=== PATIENT | male | born 1965 | race Caucasian/White ===

== ENCOUNTER → 2019-01-16 09:26 | Outpatient (CLI) | payer OTHER, SELFPAY ==
[2019-01-16 10:33] LABS: BUN Creatinine Ratio 18.9 (6-22); Blood Urea Nitrogen 17 mg/dL (9-20); Calcium 8.6 mg/dL (8.4-10.2); Carbon Dioxide 28 mmol/L (22-32); Chloride 103 mmol/L (98-107); Estimated Glomerular Filt Rate > 60.0 mL/min (>60); Glucose 94 mg/dL (70-100); HEMOLYSIS < 15 (0-50); Sodium 141 mmol/L (137-145); Uric Acid 9.3 mg/dL (3.5-8.5)
[2019-01-16 11:05] LABS: Vitamin D 25 Hydroxy (D3) 17.3 ng/mL (30.0-100.0)
== END ==
PROVIDERS: PCP Student in an Organized Health Care Education/Training Program; Visit Provider Student in an Organized Health Care Education/Training Program
DX: M10.9 Gout, unspecified (principal); E55.9 Vitamin D deficiency, unspecified
CPT/HCPCS: 36415; 80048; 82306; 84550

== ENCOUNTER 2019-05-26 12:22 | Day surgery (SDC) | payer OTHER, SELFPAY ==
--- NOTE | 2019-05-26 | PATH_ITS ---
[facility] Accession Number: [id number] . 01 Material submitted: . rectum - RECTAL POLYP . 02 Diagnosis: Rectum, Polyp: Tubular adenoma. MRV/05/28/2019 . 02 Electronically signed: . Raghu Richardson MD, PhD, Pathologist NPI- [id number] . 01 Gross description: . RECTAL POLYP: Received in formalin is 1 fragment(s) of mckeon, soft tissue measuring 0.6 x 0.4 x 0.2 cm submitted entirely in 1 cassette(s) /CKI /CKI . 02 Pathologist provided ICD-10: D12.8 . 02 CPT . 415761 Performed at: 01 [facility] [address] [facility] [place][note 2], [place], [place] [id number] MD Navjot Abernathy MD Phone: [phone] Performed at: 02 [facility] [place] [address] [place], [place] [id number] MD Zoe Melgoza MD Phone: [phone]
[2019-05-26 13:16] VITALS: BP 176/89; PULSE 55; RESP 16; TEMP 37.2; O2SAT 99
[2019-05-26 13:24] VITALS: BMI 48.7
[2019-05-26] MEDS: SODIUM CHLORIDE 0.9% 1,000 ML 200 ML IV (13:38)
--- NOTE | 2019-05-26 14:45 | PM.HP.1 ---
History of Present Illness Chief complaint: [id number] Patient History Medical History Gout (Chronic) Sleep apnea (Chronic) Social History Smoking Status: Former smoker Family & Social History Tobacco & Substance use: Smoking Status Former smoker Meds Home Medications Medication Instructions Recorded Confirmed Type ibuprofen 600 mg PO #0 01/16/13 12/22/18 History colchicine 0.6 mg capsule 0.6 mg PO TID PRN #60 cap 10/08/18 12/22/18 Rx probenecid 500 mg tablet 500 mg PO BID #60 tab 01/16/19 Rx Allergies Allergy/AdvReac Type Severity Reaction Status Date / Time No Known Allergies Allergy Uncoded 12/22/18 15:08 Review of Systems Review of Systems All systems reviewed & are unremarkable except as noted in HPI and below Exam Vital Signs (past 8 hours): - 05/26/19 13:16 Temperature 99 F Pulse Rate 55 L Respiratory Rate 16 Blood Pressure 176/89 H Pulse Oximetry 99 Oxygen Delivery Method Room Air Narrative Exam Narrative: Awake alert and oriented x3, pupils equal round reactive to light, oropharynx clear, heart regular rate and rhythm, lungs clear to auscultation bilaterally, abdomen nontender and nondistended, extremities without edema, no gross neurologic deficits noted Assessment & Plan Assessment & Plan narrative: Colon cancer screening, colonoscopy
[2019-05-26] MEDS: fentaNYL 250 MCG/5 ML INJ IV (15:31)
[2019-05-26] MEDS: MIDAZOLAM 5 MG/5 ML VIAL IV (15:32)
[2019-05-26 15:42] VITALS: BP 133/73; PULSE 60; RESP 16; O2SAT 94
[2019-05-26 15:46] VITALS: BP 147/76; PULSE 60; RESP 14; O2SAT 96
--- NOTE | 2019-05-26 15:50 | PM.OP.ENDO ---
Operative Date/Time/Diagnoses Date of procedure: 05/26/19 Procedure & Clinicians Study performed: Colonoscopy with biopsy Moderate conscious sedation was administered by the endoscopy nurse and supervised by the endoscopist. The following parameters were monitored: Oxygen saturation, heart rate, blood pressure, and response to care. Sedation: 4 mg IV midazolam, 100 mcg IV fentanyl Indications: Colon cancer screening. This is the patient's 1st colonoscopy Procedure Notes Procedure in detail: Prior to the procedure, history and physical was performed, and patient medications and allergies were reviewed. Preprocedure nursing history and assessment was reviewed. Patient identification and proposed procedure were verified by the physician and nurse in the procedure room. The physical status of the patient was reassessed after the procedure. After informed consent was obtained including risks, benefits, and alternatives, the scope was passed under direct vision. Throughout the procedure, the patient's blood pressure, pulse, and oxygen saturations were monitored continuously. The colonoscope was introduced through the anus and advanced to the cecum as identified by the appendiceal orifice and ileocecal valve. The patient tolerated the procedure well. Bowel prep was deemed adequate to detect polyps greater than 5 mm. ISAEL and perianal examinations were unremarkable. Retroflexion in the rectum revealed grade 1 internal hemorrhoids A 3 mm sessile polyp was removed from the rectum with a Jumbo biopsy forceps and retrieved Impression: Internal hemorrhoids 3 mm rectal polyp removed Sedation minutes: 18 Complications: other (EBL minimal. No complications) Plan for aftercare: Follow up pathology results Repeat colonoscopy at a date to be determined based on pathology results Resume home medications Resume previous diet Insert discharge Discharge home with escort
[2019-05-26 15:51] VITALS: BP 146/77; PULSE 54; RESP 14
[2019-05-26 16:02] VITALS: BP 144/78; PULSE 52; RESP 16; TEMP 36.3; O2SAT 97
== END 2019-05-26 16:12 | disposition home or self-care (01) ==
PROVIDERS: PCP Student in an Organized Health Care Education/Training Program; Visit Provider Internal Medicine
PROC: 0DJD8ZZ Inspection of Lower Intestinal Tract, Via Natural or Artificial Opening Endoscopic (ICD-10-PCS; CPT 45378; principal; 2019-05-26 14:00)
DX: Z12.11 Encounter for screening for malignant neoplasm of colon (principal); K64.0 First degree hemorrhoids; G47.30 Sleep apnea, unspecified; Z87.891 Personal history of nicotine dependence; D12.8 Benign neoplasm of rectum
CPT/HCPCS: 45380; 88305; J2250; J3010

== ENCOUNTER 2019-06-08 16:17 | Emergency (ER) | payer OTHER, SELFPAY ==
[2019-06-08 16:19] VITALS: BP 150/95; PULSE 70; RESP 18; TEMP 36.4; O2SAT 97
[2019-06-08 17:30] VITALS: PULSE 77
[2019-06-08] MEDS: IBUPROFEN 400 MG TABLET 800 MG PO (18:05)
--- NOTE | 2019-06-08 18:19 | ED_ITS ---
HPI - Extremity Problem <Thais Montiel PA-C - Last Filed: 06/08/19 21:13> General Chief complaint: Extremity Problem,Nontraumatic Stated complaint: SWELLING OF RIGHT FOOT Time Seen by Provider: 06/08/19 17:06 Source: patient Mode of arrival: ambulatory Limitations: no limitations History of Present Illness HPI Narrative: This 53-year-old male comes in due to right great toe/foot pain. He thinks this feels similar to previous gout exacerbations, states he has had mild pain for about a week but acutely worse today. He has noted some mild redness and swelling. He states it is a little bit different because the bottom of his toe feels slightly numb. He denies any new trauma, bites, walking barefoot, etc. He denies any new fever. He denies any lower extremity swelling or pain, no other new symptoms such as chest pain or dyspnea. Denies other joint pain. He has had many gout attacks in the past and out of colchicine, thinks that prednisone may have worked better than nonsteroidal anti- inflammatories in the past Related Data Home Medications Medication Instructions Recorded Confirmed ibuprofen 600 mg PO #0 01/16/13 12/22/18 Previous Rx's Medication Instructions Recorded colchicine 0.6 mg capsule 0.6 mg PO TID PRN #60 cap 10/08/18 probenecid 500 mg tablet 500 mg PO BID #60 tab 01/16/19 colchicine 0.6 mg PO NOW #3 cap 06/08/19 prednisone 20 mg PO DAILY 5 Days #5 tab 06/08/19 Allergies Allergy/AdvReac Type Severity Reaction Status Date / Time No Known Allergies Allergy Uncoded 12/22/18 15:08 Review of Systems <Thais Montiel PA-C - Last Filed: 06/08/19 21:13> Review of Systems ROS Unobtainable: All systems reviewed & are unremarkable except as noted in HPI and below PFSH <Thais Montiel PA-C - Last Filed: 06/08/19 21:13> Medical History Gout (Chronic) Sleep apnea (Chronic) Surgical History (Updated 06/08/19 @ 18:26 by Thais Montiel PA-C) History of back surgery (Resolved) Social History Smoking Status: Former smoker Social History Smoking Status: Former smoker Exam <Thais Montiel PA-C - Last Filed: 06/08/19 21:13> Narrative Exam Narrative: GENERAL APPEARANCE: Patient sitting comfortably, in no distress. LUNGS: Clear to auscultation bilaterally. HEART: Rate and rhythm regular without murmur, normal S1 and S2, no S3 or S4. DERMATOLOGIC: Mildly erythematous and warm right great toe at the MTP joint, more on the anterior lateral surfaces MUSCULOSKELETAL: Right great toe mild effusion and exquisitely tender at the MTP joint. No other joint tenderness or effusion NEUROVASCULAR: Right foot warm and pink, sensation grossly intact Initial Vital Signs Initial Vital Signs: Vital Signs Temperature 97.5 F L 06/08/19 16:19 Pulse Rate 70 06/08/19 16:19 Respiratory Rate 18 06/08/19 16:19 Blood Pressure 150/95 H 06/08/19 16:19 Pulse Oximetry 97 06/08/19 16:19 <DO Keily Butterfield Last Filed: 06/08/19 22:31> Initial Vital Signs Initial Vital Signs: Vital Signs Temperature 97.5 F L 06/08/19 16:19 Pulse Rate 70 06/08/19 16:19 Respiratory Rate 18 06/08/19 16:19 Blood Pressure 150/95 H 06/08/19 16:19 Pulse Oximetry 97 06/08/19 16:19 Course <Thais Montiel PA-C - Last Filed: 06/08/19 21:13> Orders Ordered: Discontinued Medications Ibuprofen (Advil) 800 mg PO NOW ONE Stop: 06/08/19 18:00 Last Admin: 06/08/19 18:05 Dose: 800 mg Vital Signs - 8 hr 06/08/19 16:19 06/08/19 17:30 06/08/19 18:31 Temperature 97.5 F L Pulse Rate 70 99 H Pulse Rate [Right Dorsalis Pedis] 77 Respiratory Rate 18 20 Blood Pressure 150/95 H Blood Pressure [Right Arm] 167/96 H Pulse Oximetry 97 96 <DO Keily Butterfield Last Filed: 06/08/19 22:31> Orders Ordered: Discontinued Medications Ibuprofen (Advil) 800 mg PO NOW ONE Stop: 06/08/19 18:00 Last Admin: 06/08/19 18:05 Dose: 800 mg Vital Signs - 8 hr 06/08/19 16:19 06/08/19 17:30 06/08/19 18:31 Temperature 97.5 F L Pulse Rate 70 99 H Pulse Rate [Right Dorsalis Pedis] 77 Respiratory Rate 18 20 Blood Pressure 150/95 H Blood Pressure [Right Arm] 167/96 H Pulse Oximetry 97 96 Discharge Plan Departure Patient Disposition: Home Clinical Impression: Gout Qualifiers: Gout site: toe Gout etiology: idiopathic Chronicity: acute Laterality: right Qualified Code(s): M10.071 - Idiopathic gout, right ankle and foot Discharge Date/Time: 06/08/19 18:33 Interventions: ED Discharge Assessment Last Done: 06/08/19 18:32 Instructions: DI for Gout Activity Restrictions/Additional Instructions: I have prescribed colchicine for you as well as prednisone (sent to Headroom). Please take the 1st dose of colchicine when you pick it up, take the 2nd dose an hour later. Typically we treat with 2 doses of this now as higher doses have not been shown to be more effective and can be tough on the kidneys as well as causing diarrhea, however you can take a 3rd dose in the morning if you needed. Also start the prednisone tonight since you think that works better for you then ibuprofen. Take that once daily. You should return as we talked about if you have acutely worsening or new symptoms such as fever, acutely worsening pain or redness. Otherwise, please follow-up with your PCP in 2-3 days to assess her progress and talk about restarting preventative gout medicine when this is better. Prescriptions: New prednisone 20 mg tablet 20 mg PO DAILY 5 Days Qty: 5 RF: 0 colchicine 0.6 mg capsule 0.6 mg PO NOW Qty: 3 RF: 0 No Action colchicine 0.6 mg capsule 0.6 mg PO TID PRN (Reason: gout) Qty: 60 RF: 0 ibuprofen 200 MG capsule 600 mg PO Qty: 0 RF: 0 probenecid 500 mg tablet 500 mg PO BID Qty: 60 RF: 5 Referrals: Alessandro Burnett MD [Primary Care Provider] - <Joni Salguero DO - Last Filed: 06/08/19 22:31> Cosign ED Attending Riya Attestation: I was available for consultation during this patient's emergency department encounter
[2019-06-08 18:31] VITALS: BP 167/96; PULSE 99; RESP 20; O2SAT 96
== END 2019-06-08 18:33 | disposition home or self-care (01) ==
PROVIDERS: Emergency Provider Internal Medicine; PCP Student in an Organized Health Care Education/Training Program
DX: M10.071 Idiopathic gout, right ankle and foot (principal)
CPT/HCPCS: 99282; 99283

== ENCOUNTER 2019-09-12 19:57 | Emergency (ER) | payer OTHER, SELFPAY ==
[2019-09-12 20:05] VITALS: BP 181/87; PULSE 64; RESP 18; TEMP 37.1; O2SAT 100
--- NOTE | 2019-09-12 20:22 | ED.EXTPRO ---
HPI - Extremity Problem <KALEB Vargas - Last Filed: 09/12/19 21:57> General Chief complaint: Extremity Problem,Nontraumatic Stated complaint: right ankle and leg is swelling and painful Time Seen by Provider: 09/12/19 20:15 Source: patient Mode of arrival: Wheelchair Limitations: no limitations History of Present Illness HPI Narrative: 53-year-old male complains of right ankle pain and swelling for the past 3 days. He states the pain is a dull aching 8/10 that is worse with movement better with rest. He reports the pain is radiating up the side of his like. He has a history of gout and has taking colchicine but states it has not provided any relief. Reports a history of back pain and surgery but states that has not been bothering him too much lately. He denies any chest pain, shortness of breath, abdominal pain, nausea, vomiting, diarrhea, fevers, or other concerning symptoms. Related Data Home Medications Medication Instructions Recorded Confirmed ibuprofen 600 mg PO TID PRN #0 01/16/13 09/12/19 colchicine 0.6 mg PO BID 09/12/19 09/12/19 Previous Rx's Medication Instructions Recorded indomethacin 25 mg PO TID PRN #15 cap 09/12/19 Allergies Allergy/AdvReac Type Severity Reaction Status Date / Time No Known Drug Allergies Allergy Verified 09/12/19 20:09 Review of Systems <KALEB Vargas - Last Filed: 09/12/19 21:57> Review of Systems Narrative: REVIEW OF SYSTEMS: GENERAL: Denies fever or chills. HENT: No head trauma, hearing loss or sore throat. EYES: No loss of vision, double vision, eye pain, or irritation. CARDIOVASCULAR: No chest pain or syncope. RESPIRATORY: No shortness of breath or cough. GASTROINTESTINAL: No nausea, vomiting, diarrhea, or constipation. GENITOURINARY: No flank pain or dysuria. MUSCULOSKELETAL: Right ankle swelling and pain, see HPI. INTEGUMENTARY: No rash, lesions, or pruritus. NEURO: No numbness, tingling, memory loss, or confusion. PSYCH: No behavior or mood changes. Patient History <KALEB Vargas - Last Filed: 09/12/19 21:57> Medical/Surgical History Medical History Gout (Chronic) Sleep apnea (Chronic) Surgical History History of back surgery (Resolved) Social History Smoking Status: Former smoker Family/Social History Social History Smoking Status: Former smoker alcohol intake frequency: 0-2 drinks per day Substance Use Type: does not use Exam <KALEB Vargas - Last Filed: 09/12/19 21:57> Initial Vital Signs Initial Vital Signs: Vital Signs Temperature 98.8 F 09/12/19 20:05 Pulse Rate 64 09/12/19 20:05 Respiratory Rate 18 09/12/19 20:05 Blood Pressure 181/87 H 09/12/19 20:05 Pulse Oximetry 100 09/12/19 20:05 PHYSICAL EXAMINATION: GENERAL: Well groomed, alert, and cooperative. Answers questions promptly and appropriately. Vital signs noted. HENT: Normocephalic, atraumatic. EYES: Symmetrical, sclera white, no periorbital swelling. CARDIOVASCULAR: Regular rate. RESPIRATORY: Normal respiratory rate, trachea midline, airway patent. No stridor, nasal flaring or accessory muscle use. MUSCULOSKELETAL: Slight swelling to right ankle. Tenderness with palpation below the right lateral malleolus. No pain reproduced with dorsiflexion. Calf tenderness with dorsiflexion and palpation of calf. Positive straight leg raise for pain in back. Patient walks with a limp due to pain. Equal tone and mass bilaterally. EXTREMITIES: CMS intact. No pedal edema. SKIN: Warm, dry, soft, appropriate color for ethnicity. No lesions, rashes, or wounds. NEURO: Alert and Oriented X 3. No sensory deficits. PSYCH: Appropriate affect and mood. <Kacey Richards DO - Last Filed: 09/13/19 03:46> Initial Vital Signs Initial Vital Signs: Vital Signs Temperature 98.8 F 09/12/19 20:05 Pulse Rate 64 09/12/19 20:05 Respiratory Rate 18 09/12/19 20:05 Blood Pressure 181/87 H 09/12/19 20:05 Pulse Oximetry 100 09/12/19 20:05 Course <KALEB Vargas - Last Filed: 09/12/19 21:57> Course Course Narrative: Patient reported decreased pain after administration of ketorolac. Orders Ordered: ED Orders 09/12/19 20:24 periph venous low extrem rt Stat 09/12/19 20:35 Basic Metabolic Panel Stat C-Reactive Protein Quant Stat Complete Blood Count AUTO DIFF Stat Erythrocyte Sedimentation Rate Stat Partial Thromboplastin Time Stat Prothrombin Time INR Stat Uric Acid Stat Discontinued Medications Ketorolac Tromethamine (Toradol) 30 mg IM NOW ONE Stop: 09/12/19 21:31 Last Admin: 09/12/19 21:38 Dose: 30 mg Documented by: EVA Consultations Consultation #1: Patient staffed with Dr. Richards. Vital Signs Vital signs: Vital Signs - 8 hr 09/12/19 20:05 09/12/19 20:49 09/12/19 22:00 Temperature 98.8 F Pulse Rate 64 64 57 L Respiratory Rate 18 18 Blood Pressure 181/87 H 149/76 H Blood Pressure [Left Arm] 160/104 H Pulse Oximetry 100 97 99 <Kacey Richards DO - Last Filed: 09/13/19 03:46> Orders Ordered: ED Orders 09/12/19 20:24 periph venous low extrem rt Stat 09/12/19 20:35 Basic Metabolic Panel Stat C-Reactive Protein Quant Stat Complete Blood Count AUTO DIFF Stat Erythrocyte Sedimentation Rate Stat Partial Thromboplastin Time Stat Prothrombin Time INR Stat Uric Acid Stat Discontinued Medications Ketorolac Tromethamine (Toradol) 30 mg IM NOW ONE Stop: 09/12/19 21:31 Last Admin: 09/12/19 21:38 Dose: 30 mg Documented by: EVA Vital Signs Vital signs: Vital Signs - 8 hr 09/12/19 20:05 09/12/19 20:49 09/12/19 22:00 Temperature 98.8 F Pulse Rate 64 64 57 L Respiratory Rate 18 18 Blood Pressure 181/87 H 149/76 H Blood Pressure [Left Arm] 160/104 H Pulse Oximetry 100 97 99 MDM - Extremity (Nontraumatic) <KALEB Vargas - Last Filed: 09/12/19 21:57> Lab Data Result diagrams: 09/12/19 20:35 09/12/19 20:35 Labs: Lab Results 09/12/19 09/12/19 09/12/19 Range/Units 20:35 20:35 20:35 WBC (4.5-11.0) X10^3/uL RBC (4.5-5.9) X10^6/uL Hgb (13.5-17.5) g/dL Hct (41-53) % MCV (80-100) fL MCH (26-34) PG MCHC (30-36) % RDW (11.6-14.8) % Plt Count (150-400) X10^3/uL Neut % (Auto) (50-75) % Lymph % (Auto) (25-40) % Davie % (Auto) (3-14) % Eos % (Auto) (2-4) % Baso % (Auto) (0-2) % Neut # (Auto) (8812-9189) /uL Lymph # (Auto) (5821-0314) /uL Davie # (Auto) (0-900) /uL Eos # (Auto) (0-450) /uL Baso # (Auto) (0-100) /uL ESR 1 (0-15) MM/HR PT 10.6 (10.1-12.7) SECONDS INR 0.9 (0.9-1.3) APTT 30 (26.4-36.2) SECONDS Sodium (137-145) mmol/L Potassium (3.4-5.1) mmol/L Chloride (98-107) mmol/L Carbon Dioxide (22-32) mmol/L BUN (9-20) mg/dL Creatinine (0.66-1.25) mg/dL Estimated GFR (>60) mL/min BUN/Creatinine Ratio (6-22) Glucose (70-100) mg/dL Uric Acid 7.9 (3.5-8.5) mg/dL Calcium (8.4-10.2) mg/dL C-Reactive Protein 2.5 H (<1.0) mg/dL 09/12/19 09/12/19 Range/Units 20:35 20:35 WBC 6.9 (4.5-11.0) X10^3/uL RBC 5.30 (4.5-5.9) X10^6/uL Hgb 14.1 (13.5-17.5) g/dL Hct 42.5 (41-53) % MCV 80.1 (80-100) fL MCH 26.7 (26-34) PG MCHC 33.3 (30-36) % RDW 14.7 (11.6-14.8) % Plt Count 291 (150-400) X10^3/uL Neut % (Auto) 50.3 (50-75) % Lymph % (Auto) 34.1 (25-40) % Davie % (Auto) 12.7 (3-14) % Eos % (Auto) 2.1 (2-4) % Baso % (Auto) 0.8 (0-2) % Neut # (Auto) 3500 (1815-8769) /uL Lymph # (Auto) 2300 (3445-2393) /uL Davie # (Auto) 900 (0-900) /uL Eos # (Auto) 100 (0-450) /uL Baso # (Auto) 100 (0-100) /uL ESR (0-15) MM/HR PT (10.1-12.7) SECONDS INR (0.9-1.3) APTT (26.4-36.2) SECONDS Sodium 139 (137-145) mmol/L Potassium 3.7 (3.4-5.1) mmol/L Chloride 102 (98-107) mmol/L Carbon Dioxide 29 (22-32) mmol/L BUN 16 (9-20) mg/dL Creatinine 0.90 (0.66-1.25) mg/dL Estimated GFR > 60.0 (>60) mL/min BUN/Creatinine Ratio 17.8 (6-22) Glucose 110 H (70-100) mg/dL Uric Acid (3.5-8.5) mg/dL Calcium 8.9 (8.4-10.2) mg/dL C-Reactive Protein (<1.0) mg/dL Imaging Data LLE US: Radiologist's impression: [address] [place] [address] Ultrasound Report Signed Patient: Benjamin Mosher JMR#: [id number] : 1965Acct:[id number] Age/Sex: 53 / MDate of Service: 09/12/19 Loc: ED Accession Number: [id number] Procedure: US periph venous low extrem rt Ordering Provider: Chelle Montiel PROCEDURE: US PERIP VENOUS LOW EXTREM RT INDICATIONS: CALF PAIN TECHNIQUE: Real-time imaging, as well as color and pulse Doppler interrogation, were performed of the lower extremity deep veins from the inguinal ligament to the popliteal fossa. COMPARISON: None. FINDINGS: The common femoral, femoral and popliteal veins are normally compressible, and free of intraluminal thrombus. Color and pulse Doppler demonstrate normal phasic intraluminal flow. There is normal augmentation response to distal compression maneuver. IMPRESSION: No DVT found. Dictated by: Domingo Perera M.D. on 09/12/2019 at 21:11 Approved by: Domingo Perera M.D. on 09/12/2019 at 21:12 [facility] Narrative Medical decision making narrative: Suspect patient's symptoms caused by gout (due to elevated CRP, elevated uric acid, history of gout). Less likely DVT due to negative ultrasound. Less likely infection due to lack of erythema and swelling, as well as normal white blood cell count. Less likely fracture or soft tissue injury as patient denies any trauma. Patient was given indomethacin as as previously taking colchicine for this attack (renal function intact). Patient was instructed to follow up with his primary care provider in the next few days for discussion about gout prevention. Strict return precautions were given. <Kacey Richards, DO - Last Filed: 09/13/19 03:46> Lab Data Labs: Lab Results 09/12/19 09/12/19 09/12/19 Range/Units 20:35 20:35 20:35 WBC (4.5-11.0) X10^3/uL RBC (4.5-5.9) X10^6/uL Hgb (13.5-17.5) g/dL Hct (41-53) % MCV (80-100) fL MCH (26-34) PG MCHC (30-36) % RDW (11.6-14.8) % Plt Count (150-400) X10^3/uL Neut % (Auto) (50-75) % Lymph % (Auto) (25-40) % Davie % (Auto) (3-14) % Eos % (Auto) (2-4) % Baso % (Auto) (0-2) % Neut # (Auto) (9824-6061) /uL Lymph # (Auto) (1977-5234) /uL Davie # (Auto) (0-900) /uL Eos # (Auto) (0-450) /uL Baso # (Auto) (0-100) /uL ESR 1 (0-15) MM/HR PT 10.6 (10.1-12.7) SECONDS INR 0.9 (0.9-1.3) APTT 30 (26.4-36.2) SECONDS Sodium (137-145) mmol/L Potassium (3.4-5.1) mmol/L Chloride (98-107) mmol/L Carbon Dioxide (22-32) mmol/L BUN (9-20) mg/dL Creatinine (0.66-1.25) mg/dL Estimated GFR (>60) mL/min BUN/Creatinine Ratio (6-22) Glucose (70-100) mg/dL Uric Acid 7.9 (3.5-8.5) mg/dL Calcium (8.4-10.2) mg/dL C-Reactive Protein 2.5 H (<1.0) mg/dL 09/12/19 09/12/19 Range/Units 20:35 20:35 WBC 6.9 (4.5-11.0) X10^3/uL RBC 5.30 (4.5-5.9) X10^6/uL Hgb 14.1 (13.5-17.5) g/dL Hct 42.5 (41-53) % MCV 80.1 (80-100) fL MCH 26.7 (26-34) PG MCHC 33.3 (30-36) % RDW 14.7 (11.6-14.8) % Plt Count 291 (150-400) X10^3/uL Neut % (Auto) 50.3 (50-75) % Lymph % (Auto) 34.1 (25-40) % Davie % (Auto) 12.7 (3-14) % Eos % (Auto) 2.1 (2-4) % Baso % (Auto) 0.8 (0-2) % Neut # (Auto) 3500 (6870-6963) /uL Lymph # (Auto) 2300 (7685-3415) /uL Davie # (Auto) 900 (0-900) /uL Eos # (Auto) 100 (0-450) /uL Baso # (Auto) 100 (0-100) /uL ESR (0-15) MM/HR PT (10.1-12.7) SECONDS INR (0.9-1.3) APTT (26.4-36.2) SECONDS Sodium 139 (137-145) mmol/L Potassium 3.7 (3.4-5.1) mmol/L Chloride 102 (98-107) mmol/L Carbon Dioxide 29 (22-32) mmol/L BUN 16 (9-20) mg/dL Creatinine 0.90 (0.66-1.25) mg/dL Estimated GFR > 60.0 (>60) mL/min BUN/Creatinine Ratio 17.8 (6-22) Glucose 110 H (70-100) mg/dL Uric Acid (3.5-8.5) mg/dL Calcium 8.9 (8.4-10.2) mg/dL C-Reactive Protein (<1.0) mg/dL Discharge Plan Departure Patient Disposition: Home Clinical Impression: Gout Qualifiers: Gout site: ankle Gout etiology: unspecified cause Chronicity: acute Laterality: right Qualified Code(s): M10.9 - Gout, unspecified Discharge Date/Time: 09/12/19 22:00 Instructions: DI for Gout Activity Restrictions/Additional Instructions: Thank you for entrusting me with your care today. As discussed, it appears that her symptoms may be caused by gout. Your ultrasound was negative for any blood clots under lab work was negative for any infection. I prescribed you indomethacin, please take this next few days to help with pain and swelling. Follow up with your primary care provider about for discussion about gout prevention. Return emergency department if you develop chest pain, shortness of breath, abdominal pain, syncope, high fevers, or other concerning symptoms. Prescriptions: New indomethacin 25 mg capsule 25 mg PO TID PRN (Reason: gout) Qty: 15 RF: 0 No Action ibuprofen 200 MG capsule 600 mg PO TID PRN (Reason: Pain, Moderate) Qty: 0 RF: 0 colchicine 0.6 mg capsule 0.6 mg PO BID RF: 0 Referrals: Alessandro Burnett MD [Primary Care Provider] -
[2019-09-12 20:49] VITALS: BP 160/104; PULSE 64; O2SAT 97
[2019-09-12 20:54] LABS: INR 0.9 (0.9-1.3); Prothrombin Time 10.6 SECONDS (10.1-12.7)
[2019-09-12 20:55] LABS: Add Manual Diff / Slide Review NO; Basophils Absolute Auto 100 /uL (0-100); Basophils Percent Auto 0.8 % (0-2); Eosinophils Absolute Auto 100 /uL (0-450); Eosinophils Percent Auto 2.1 % (2-4); Hematocrit 42.5 % (41-53); Hemoglobin 14.1 g/dL (13.5-17.5); Lymphocytes Absolute Auto 2300 /uL (1100-4500); Lymphocytes Percent Auto 34.1 % (25-40); Mean Corpuscular HGB Conc 33.3 % (30-36); Mean Corpuscular Hemoglobin 26.7 PG (26-34); Mean Corpuscular Volume 80.1 fL (80-100); Monocytes Absolute Auto 900 /uL (0-900); Monocytes Percent Auto 12.7 % (3-14); Neutrophils Absolute Auto 3500 /uL (1500-7000); Neutrophils Percent Auto 50.3 % (50-75); Platelet Count 291 X10^3/uL (150-400); Red Cell Distribution Width 14.7 % (11.6-14.8); White Blood Cell Count 6.9 X10^3/uL (4.5-11.0)
[2019-09-12 20:57] LABS: PTT Partial Thromboplastin Tim 30 SECONDS (26.4-36.2)
[2019-09-12 21:01] LABS: C-Reactive Protein Quant 2.5 mg/dL (<1.0); Uric Acid 7.9 mg/dL (3.5-8.5)
[2019-09-12 21:06] LABS: Erythrocyte Sedimentation Rate 1 MM/HR (0-15)
[2019-09-12 21:22] LABS: BUN Creatinine Ratio 17.8 (6-22); Blood Urea Nitrogen 16 mg/dL (9-20); Calcium 8.9 mg/dL (8.4-10.2); Carbon Dioxide 29 mmol/L (22-32); Chloride 102 mmol/L (98-107); Estimated Glomerular Filt Rate > 60.0 mL/min (>60); Glucose 110 mg/dL (70-100); HEMOLYSIS < 15 (0-50); Potassium 3.7 mmol/L (3.4-5.1); Sodium 139 mmol/L (137-145)
[2019-09-12] MEDS: KETOROLAC 60 MG/2 ML VIAL 30 MG IM (21:38)
[2019-09-12 22:00] VITALS: BP 149/76; PULSE 57; RESP 18; O2SAT 99
== END 2019-09-12 22:00 | disposition home or self-care (01) ==
PROVIDERS: Emergency Provider Nurse Practitioner; PCP Student in an Organized Health Care Education/Training Program
DX: M10.9 Gout, unspecified (principal)
CPT/HCPCS: 80048; 84550; 85025; 85610; 85651; 85730; 86140; 93971; 96372; 99282; 99284; J1885

== ENCOUNTER → 2021-06-25 15:14 | Outpatient (CLI) | payer OTHER, SELFPAY ==
[2021-06-25 16:20] LABS: BUN Creatinine Ratio 17.8 (6-22); Blood Urea Nitrogen 16 mg/dL (9-20); Estimated Glomerular Filt Rate > 60.0 mL/min (>60); Uric Acid 7.9 mg/dL (3.5-8.5)
== END ==
PROVIDERS: PCP Student in an Organized Health Care Education/Training Program; Referring Provider Student in an Organized Health Care Education/Training Program; Visit Provider Student in an Organized Health Care Education/Training Program
DX: I10 Essential (primary) hypertension (principal); M10.9 Gout, unspecified
CPT/HCPCS: 36415; 82565; 84520; 84550

== ENCOUNTER → 2023-06-20 10:45 | Outpatient (CLI) | payer OTHER, SELFPAY ==
[2023-06-20 11:48] LABS: Appearance Urine UA CLEAR; Bilirubin Urine UA NEGATIVE (NEGATIVE); Color Urine UA YELLOW; Glucose Urine UA NEGATIVE (Negative); Ketones Urine UA NEGATIVE (NEGATIVE); Leukocyte Esterase Urine UA NEGATIVE (NEGATIVE); Nitrite Urine UA NEGATIVE (Negative); Occult Blood Urine UA NEGATIVE (Negative); Protein Urine UA NEGATIVE (Negative); Urobilinogen Urine UA 0.2 E.U./dL (0.2); pH Urine UA 5.5 (4.5-8.0)
[2023-06-20 12:06] LABS: Bacteria Urine Occasional (0-1); Culture Indicated Urine Cult Not Indicated; Mucus Urine 2+ (Negative); RBC Urine 0-1/HPF (0-5/HPF); Squamous Epithelial Cell Urine 0-1 /HPF (0-5/HPF); WBC Urine 1-5/HPF (0-5/HPF)
[2023-06-20 12:19] LABS: Add Manual Diff / Slide Review NO; Basophils Absolute Auto 100 /uL (0-100); Basophils Percent Auto 0.9 % (0-2); Eosinophils Absolute Auto 100 /uL (0-450); Eosinophils Percent Auto 2.1 % (2-4); Hematocrit 38.7 % (41-53); Hemoglobin 12.9 g/dL (13.5-17.5); Lymphocytes Absolute Auto 1500 /uL (1100-4500); Lymphocytes Percent Auto 22.6 % (25-40); Mean Corpuscular HGB Conc 33.3 % (30-36); Mean Corpuscular Hemoglobin 26.6 PG (26-34); Mean Corpuscular Volume 79.8 fL (80-100); Monocytes Absolute Auto 700 /uL (0-900); Monocytes Percent Auto 11.3 % (3-14); Neutrophils Absolute Auto 4100 /uL (1500-7000); Neutrophils Percent Auto 63.1 % (50-75); Platelet Count 279 X10^3/uL (150-400); Red Blood Cell Count 4.84 X10^6/uL (4.5-5.9); Red Cell Distribution Width 16.1 % (11.6-14.8); White Blood Cell Count 6.5 X10^3/uL (4.5-11.0)
[2023-06-20 12:29] LABS: Alanine Aminotransferase 22 IU/L (<50); Albumin Globulin Ratio 1.5 (1.0-2.8); Alkaline Phosphatase 87 U/L (38-126); Aspartate Aminotransferase 20 IU/L (17-59); BUN Creatinine Ratio 16.2 (6-22); Bilirubin Total 0.3 mg/dL (0.2-1.3); Blood Urea Nitrogen 16 mg/dL (9-20); Calcium 8.8 mg/dL (8.4-10.2); Carbon Dioxide 31 mmol/L (22-32); Chloride 104 mmol/L (98-107); Cholesterol 148 mg/dL (140-199); Estimated Glomerular Filt Rate > 60 mL/min (>60); Globulin 2.7 g/dL (1.7-4.1); Glucose 92 mg/dL (70-100); HDL Cholesterol 40 mg/dL (40-60); HEMOLYSIS < 15 (0-50); LDL Cholesterol Calculated 89 mg/dL (<100); Potassium 4.7 mmol/L (3.4-5.1); Sodium 142 mmol/L (137-145); Total Protein 6.7 g/dL (6.3-8.2); Triglycerides 97 mg/dL (35-150); Uric Acid 6.7 mg/dL (3.5-8.5)
== END ==
PROVIDERS: PCP Pediatrics; Referring Provider Pediatrics; Visit Provider Pediatrics
DX: E66.01 Morbid (severe) obesity due to excess calories (principal); I10 Essential (primary) hypertension; M10.9 Gout, unspecified
CPT/HCPCS: 36415; 80053; 80061; 81001; 84443; 84550; 85025

== ENCOUNTER 2024-09-25 16:55 | Inpatient (IN) | payer OTHER, SELFPAY ==
[2024-09-25] VITALS (10 sets, daily range): BP systolic 166–211; BP diastolic 87–111; PULSE 87–101; RESP 14–26; TEMP 37.3; O2SAT 94–97; BMI 62.8
--- NOTE | 2024-09-25 17:01 | DI.US.S_ITS ---
PROCEDURE: US PERIPH VENOUS LOW EXTREM LT INDICATIONS: pain and swelling, ? popliteal cyst. Surgery 09/22 TECHNIQUE: Real-time imaging, as well as color and pulse Doppler interrogation, were performed of the lower extremity deep veins from the inguinal ligament to the popliteal fossa, with documentation of the visualized calf veins. COMPARISON: None. FINDINGS: The common femoral, femoral, popliteal, and the visualized calf veins are normally compressible, and free of intraluminal thrombus. Color and pulse Doppler demonstrate normal phasic intraluminal flow. There is normal augmentation response to distal compression maneuver. IMPRESSION: No findings of lower extremity deep venous thrombosis. No popliteal cyst visualized. Dictated by: Franklin Guzmán M.D. on 09/25/2024 at 18:34 Approved by: Franklin Guzmán M.D. on 09/25/2024 at 18:34
--- NOTE | 2024-09-25 17:01 | DI.RAD.S_ITS ---
PROCEDURE: XR KNEE LT 1TO2V INDICATIONS: pain, effusion TECHNIQUE: 2 views of the knee were acquired. COMPARISON: None. FINDINGS: Bones: No fractures or dislocations. No suspicious bony lesions. Soft tissues: Moderate joint effusion. No suspicious soft tissue calcifications. IMPRESSION: No acute bony abnormality. Moderate knee joint effusion. Dictated by: Franklin Guzmán M.D. on 09/25/2024 at 17:54 Approved by: Franklin Guzmán M.D. on 09/25/2024 at 17:54
[2024-09-25] MEDS: HYDROMORPHONE 1 MG INJ IV (17:08)
--- NOTE | 2024-09-25 17:15 | EKG_ITS ---
[place] [id number] [place] [id number] Test Date: 2024-09-25 Pat Name: Benjamin Mosher Department: Room: 226 Gender: Male Internet Marketing Manager: NANCY : 1965 Requested By: Order Number: [id number] Reading MD: Luke Gresham Measurements Intervals [place] Rate: 87 P: 40 [place]: 182 QRS: -14 QRSD: 98 T: 53 QT: 382 QTc: 459 Interpretive Statements Normal sinus rhythm Moderate voltage criteria for LVH, may be normal variant ( R in aVL , [place]on product ) Electronically Signed On 09-28-2024 14:43:09 PDT by Luke Gresham
[2024-09-25] MEDS: hydrOXYzine 50 MG/ML INJ IM (17:18)
[2024-09-25 18:05] LABS: Add Manual Diff / Slide Review NO; Basophils Absolute Auto 0 /uL (0-100); Basophils Percent Auto 0.3 % (0-2); Eosinophils Absolute Auto 0 /uL (0-450); Eosinophils Percent Auto 0.2 % (2-4); Hematocrit 44.3 % (41-53); Hemoglobin 14.3 g/dL (13.5-17.5); Lymphocytes Absolute Auto 1100 /uL (1100-4500); Lymphocytes Percent Auto 8.5 % (25-40); Mean Corpuscular HGB Conc 32.3 % (30-36); Mean Corpuscular Hemoglobin 26.6 PG (26-34); Mean Corpuscular Volume 82.5 fL (80-100); Monocytes Absolute Auto 1200 /uL (0-900); Monocytes Percent Auto 9.4 % (3-14); Neutrophils Absolute Auto 10100 /uL (1500-7000); Neutrophils Percent Auto 81.6 % (50-75); Platelet Count 292 X10^3/uL (150-400); Red Blood Cell Count 5.37 X10^6/uL (4.5-5.9); Red Cell Distribution Width 15.4 % (11.6-14.8); White Blood Cell Count 12.4 X10^3/uL (4.5-11.0)
[2024-09-25 18:23] LABS: Alanine Aminotransferase 141 IU/L (<50); Albumin 4.5 g/dL (3.5-5.0); Albumin Globulin Ratio 1.4 (1.0-2.8); Alkaline Phosphatase 108 U/L (38-126); Aspartate Aminotransferase 54 IU/L (17-59); BUN Creatinine Ratio 15.2 (6-22); Blood Urea Nitrogen 15 mg/dL (9-20); Carbon Dioxide 27 mmol/L (22-32); Chloride 98 mmol/L (98-107); Estimated Glomerular Filt Rate > 60 mL/min (>60); Globulin 3.3 g/dL (1.7-4.1); Glucose 118 mg/dL (70-100); HEMOLYSIS < 15 (0-50); Potassium 3.7 mmol/L (3.4-5.1); Sodium 136 mmol/L (137-145); Total Protein 7.8 g/dL (6.3-8.2); Uric Acid 4.2 mg/dL (3.5-8.5)
--- NOTE | 2024-09-25 18:32 | ED_ITS ---
HPI - Extremity Problem General Chief complaint: Extremity Problem,Nontraumatic Stated complaint: Lt knee pain Time Seen by Provider: 09/25/24 16:56 Source: EMS Mode of arrival: EMS History of Present Illness HPI Narrative: 58-year-old male now postop day 4 gastric bypass surgery done [place] yo, history of gout, no preprocedure or postprocedure left knee pain recalled, now with left knee pain and swelling atraumatic, since yesterday, increasing pain. No fevers or chills. No history of left knee recent interventions. No knee injury recalled before during or after his recent abdominal procedure. Related Data Home Medications Medication Instructions Recorded Confirmed acetaminophen 500 mg tablet 500 mg PO Q4H PRN pain 09/25/24 09/25/24 enoxaparin 40 mg/0.4 mL 40 mg DAILY 09/25/24 09/25/24 subcutaneous syringe methocarbamol 750 mg tablet 750 mg PO 3XD 09/25/24 09/25/24 omeprazole 20 mg capsule,delayed 20 mg PO DAILY 09/25/24 09/25/24 release ondansetron 8 mg disintegrating 8 mg PO Q8H PRN nausea/vomiting 09/25/24 09/25/24 tablet oxycodone 5 mg tablet 5 mg PO Q6H PRN pain 09/25/24 09/25/24 polyethylene glycol 3350 17 gram 17 g PO DAILY 09/25/24 09/25/24 oral powder packet (Miralax) ursodiol 300 mg capsule 300 mg PO BID 09/25/24 09/25/24 Previous Rx's Medication Instructions Recorded colchicine 0.6 mg tablet 0.6 mg PO DAILY 3 months #30 tabs 09/26/23 losartan 100 mg tablet 100 mg PO DAILY blood pressure #90 11/25/23 tabs allopurinol 300 mg tablet 300 mg PO BID #180 tabs 12/23/23 Allergies Allergy/AdvReac Type Severity Reaction Status Date / Time No Known Drug Allergies Allergy Verified 09/25/24 17:07 Review of Systems Review of Systems Narrative: see HPI Patient History Medical History (Updated 09/25/24 @ 18:59 by Moise Blum MD) Nicotine use disorder Benign essential HTN Knee pain Sleep apnea Gout Surgical History History of back surgery Social History household members: family and children Smoking Status: Former smoker Smoking Status: Former smoker alcohol intake frequency: 0-2 drinks per day Substance Use Type: does not use Exam Narrative Exam Narrative: GENERAL: Well-developed patient, in mild distress. HEAD: Atraumatic. Normocephalic. EYES: Pupils equal round and reactive. Extraocular motions intact. No scleral icterus. No injection or drainage. ENT: Nose without bleeding, purulent drainage. Throat without erythema, tonsillar hypertrophy or exudate. Airway patent. NECK: Trachea midline. Non tender CARDIOVASCULAR: Regular rate and rhythm without murmurs, gallops, or rubs. RESPIRATORY: Clear to auscultation. Breath sounds equal bilaterally. No wheezes, rales, or rhonchi. GASTROINTESTINAL: Abdomen soft, non-tender, nondistended. Wearing an abdominal binder EXTREMITIES: Tenderness diffuse left knee, not particularly red or warm, no mediolateral joint line tenderness, some effusion noted. No posterior knee mass or tenderness. No cords or mass or tenderness posteriorly in popliteal or calf or thigh. BACK: Nontender without deformity or crepitance. No flank tenderness. NEURO: AOx3. Motor functions grossly nonfocal SKIN: No rash or erythema of visible areas Initial Vital Signs Initial Vital Signs: Vital Signs Temperature 99.2 F 09/25/24 17:04 Pulse Rate 88 09/25/24 17:04 Respiratory Rate 26 H 09/25/24 17:04 Blood Pressure 211/108 H 09/25/24 17:04 Pulse Oximetry 96 09/25/24 17:04 Oxygen Delivery Method Room Air 09/25/24 17:04 Procedures Joint Aspiration Joint Asp./Inject. 1: Time of procedure: 19:33 Side of body: left Joint Aspirated: knee Ultrasound Guidance: No Skin Prep: Chlorhexidine Local Anesthetic: lidocaine 1% and with epi Amount of anesthesia used (mL): 5 Total fluid obtained (mL): 0 Course Orders Ordered: Acetaminophen (Acetaminophen 325 Mg Tablet) 650 mg PO Q4H PRN PRN Reason: pain Allopurinol (Allopurinol 100 Mg Tablet) 300 mg PO BID [facility] Last Admin: 09/26/24 08:23 Dose: 300 mg Documented By: RCIARDO Colchicine (Colchicine 0.6 Mg Tablet) 0.6 mg PO BID [facility] Last Admin: 09/26/24 08:23 Dose: 0.6 mg Documented By: RICARDO Hydromorphone HCl (Hydromorphone 1 Mg Inj) 1 mg IV Q3H PRN PRN Reason: Pain, Severe (7-10) Last Admin: 09/26/24 14:44 Dose: 1 mg Documented By: Admin: 09/26/24 10:37 Dose: 1 mg Documented By: Admin: 09/26/24 06:10 Dose: 1 mg Documented By: Admin: 09/26/24 02:29 Dose: 1 mg Documented By: Losartan Potassium (Losartan 50 Mg Tablet) 100 mg PO DAILY [facility] Last Admin: 09/26/24 08:22 Dose: 100 mg Documented By: RICARDO Methocarbamol (Methocarbamol 500 Mg Tablet) 750 mg PO TID [facility] Last Admin: 09/26/24 15:31 Dose: 750 mg Documented By: Admin: 09/26/24 08:23 Dose: 750 mg Documented By: RICARDO Morphine Sulfate (Morphine 2 Mg/Ml Inj) 2 mg IV Q4HR PRN PRN Reason: Pain, Moderate (4-6) Last Admin: 09/26/24 13:27 Dose: 2 mg Documented By: Admin: 09/26/24 08:22 Dose: 2 mg Documented By: Admin: 09/26/24 01:20 Dose: 2 mg Documented By: MUNIRA Naloxone HCl (Naloxone 0.4 Mg/Ml Vial) 0.2 mg IV Q2MIN PRN PRN Reason: Opiate Reversal Ondansetron HCl (Ondansetron 4 Mg/2 Ml Inj) 4 mg IV Q8HR PRN PRN Reason: Nausea And Vomiting Ondansetron HCl (Ondansetron 4 Mg Odt) 8 mg PO Q8H PRN PRN Reason: nausea/vomiting Oxycodone HCl (Oxycodone Ir 5 Mg Tablet) 5 mg PO Q6H PRN PRN Reason: pain Last Admin: 09/26/24 04:52 Dose: 5 mg Documented By: Pantoprazole Sodium (Pantoprazole Dr 20 Mg Tablet) 20 mg PO DAILY [facility] Last Admin: 09/26/24 08:23 Dose: 20 mg Documented By: RICARDO Polyethylene Glycol (Polyethylene Glycol 3350 17 Gm Powd.Pack) 17 gm PO DAILY [facility] Last Admin: 09/26/24 08:23 Dose: 17 gm Documented By: RICARDO Sodium Chloride (Sodium Chloride 0.9% Flush) 10 ml IV BID [facility] Last Admin: 09/26/24 08:23 Dose: 10 ml Documented By: RICARDO Ursodiol (Ursodiol 300 Mg Capsule) 300 mg PO BID [facility] Last Admin: 09/26/24 09:54 Dose: Not Given Documented By: RICARDO Discontinued Medications Acetaminophen (Acetaminophen 325 Mg Tablet) 650 mg PO Q6H PRN PRN Reason: Fever/Mild Pain (1-3) Last Admin: 09/26/24 08:22 Dose: 650 mg Documented By: RICARDO Colchicine (Colchicine 0.6 Mg Tablet) 1.2 mg PO NOW ONE Stop: 09/25/24 17:58 Last Admin: 09/25/24 18:33 Dose: 1.2 mg Documented By: SULLY Colchicine (Colchicine 0.6 Mg Tablet) 0.6 mg PO DAILY [facility] Last Admin: 09/26/24 10:01 Dose: Not Given Documented By: RICARDO Hydromorphone HCl (Hydromorphone 1 Mg Inj) 1 mg IV NOW ONE Stop: 09/25/24 17:02 Last Admin: 09/25/24 17:08 Dose: 1 mg Documented By: LILO Hydromorphone HCl (Hydromorphone 1 Mg Inj) 0.5 mg IV NOW ONE Stop: 09/25/24 18:51 Last Admin: 09/25/24 19:22 Dose: 0.5 mg Documented By: IRON Hydromorphone HCl (Hydromorphone 1 Mg Inj) 0.5 mg IV Q3H PRN PRN Reason: Pain, Severe (7-10) Last Admin: 09/25/24 23:45 Dose: 0.5 mg Documented By: Hydroxyzine HCl (Hydroxyzine 50 Mg/Ml Inj) 50 mg IM NOW ONE Stop: 09/25/24 17:02 Last Admin: 09/25/24 17:18 Dose: 50 mg Documented By: KEYLA Ketorolac Tromethamine (Ketorolac 30 Mg/Ml Vial) 15 mg IV NOW ONE Stop: 09/25/24 18:54 Last Admin: 09/25/24 19:23 Dose: 15 mg Documented By: IRON Lidocaine/Epinephrine (Lidocaine 1% W/Epi) 20 ml INJ INTRA-OP ONE Stop: 09/25/24 19:03 Last Admin: 09/25/24 19:30 Dose: 5 ml Documented By: IRON Oxycodone/Acetaminophen (Oxycodone/Acetaminophen 5/325 Tablet) 1 tab PO Q6HR PRN PRN Reason: Pain, Moderate (4-6) Last Admin: 09/26/24 03:58 Dose: 1 tab Documented By: Admin: 09/25/24 21:24 Dose: 1 tab Documented By: YVONNE Vital Signs Vital signs: Vital Signs - 8 hr 09/25/24 17:04 09/25/24 17:04 09/25/24 17:30 Temperature 99.2 F Pulse Rate 88 94 H 90 Respiratory Rate 26 H 22 Blood Pressure 211/108 H Pulse Oximetry 96 95 Oxygen Delivery Method Room Air 09/25/24 17:48 09/25/24 17:48 09/25/24 18:00 Temperature Pulse Rate 92 H 92 H Respiratory Rate 23 25 H Blood Pressure 185/105 H Pulse Oximetry 96 Oxygen Delivery Method 09/25/24 18:00 09/25/24 18:30 09/25/24 18:30 Temperature Pulse Rate 87 Respiratory Rate 22 Blood Pressure 197/111 H 177/99 H Pulse Oximetry 96 Oxygen Delivery Method 09/25/24 19:00 09/25/24 19:00 09/25/24 19:30 Temperature Pulse Rate 91 H Respiratory Rate 14 Blood Pressure 189/104 H 167/87 H Pulse Oximetry 97 Oxygen Delivery Method 09/25/24 19:30 09/25/24 20:00 09/25/24 20:00 Temperature Pulse Rate 97 H 101 H Respiratory Rate 22 20 Blood Pressure 166/89 H Pulse Oximetry 95 94 Oxygen Delivery Method MDM - Extremity (Nontraumatic) Lab Data 09/26/24 05:08 09/26/24 05:08 Labs: Lab Results 09/25/24 Range/Units 17:58 WBC 12.4 H (4.5-11.0) X10^3/uL RBC 5.37 (4.5-5.9) X10^6/uL Hgb 14.3 (13.5-17.5) g/dL Hct 44.3 (41-53) % MCV 82.5 (80-100) fL MCH 26.6 (26-34) PG MCHC 32.3 (30-36) % RDW 15.4 H (11.6-14.8) % Plt Count 292 (150-400) X10^3/uL Neut % (Auto) 81.6 H (50-75) % Lymph % (Auto) 8.5 L (25-40) % [place] % (Auto) 9.4 (3-14) % Eos % (Auto) 0.2 L (2-4) % Baso % (Auto) 0.3 (0-2) % Neut # (Auto) 96470 H (4035-2170) /uL Lymph # (Auto) 1100 (1141-7795) /uL [place] # (Auto) 1200 H (0-900) /uL Eos # (Auto) 0 (0-450) /uL Baso # (Auto) 0 (0-100) /uL ESR 20 H (0-15) MM/HR Sodium 136 L (137-145) mmol/L Potassium 3.7 (3.4-5.1) mmol/L Chloride 98 (98-107) mmol/L Carbon Dioxide 27 (22-32) mmol/L BUN 15 (9-20) mg/dL Creatinine 0.99 (0.66-1.25) mg/dL Estimated GFR > 60 (>60) mL/min BUN/Creatinine Ratio 15.2 (6-22) Glucose 118 H (70-100) mg/dL Uric Acid 4.2 (3.5-8.5) mg/dL Calcium 9.0 (8.4-10.2) mg/dL Total Bilirubin 1.0 (0.2-1.3) mg/dL AST 54 (17-59) IU/L ALT 141 H (<50) IU/L Alkaline Phosphatase 108 (38-126) U/L C-Reactive Protein 20.4 H (<1.0) mg/dL Total Protein 7.8 (6.3-8.2) g/dL Albumin 4.5 (3.5-5.0) g/dL Globulin 3.3 (1.7-4.1) g/dL Albumin/Globulin Ratio 1.4 (1.0-2.8) Imaging Data Extremity x-ray #1: My Impression: [address] [address] XRay Report Signed Patient: Benjamin Mosher MR#: [id number] : 1965 Acct:[id number] Age/Sex: 58 / M Date of Service: 09/25/24 Loc: ED Accession Number: [id number] Procedure: XR knee LT 1to2V Ordering Provider: Winnie Correa MD PROCEDURE: XR KNEE LT 1TO2V INDICATIONS: pain, effusion TECHNIQUE: 2 views of the knee were acquired. COMPARISON: None. FINDINGS: Bones: No fractures or dislocations. No suspicious bony lesions. Soft tissues: Moderate joint effusion. No suspicious soft tissue calcifications. IMPRESSION: No acute bony abnormality. Moderate knee joint effusion. Dictated by: Franklin Guzmán M.D. on 09/25/2024 at 17:54 Approved by: Franklin Guzmán M.D. on 09/25/2024 at 17:54 Radiologist's Impression: [address] [address] XRay Report Signed Patient: Benjamin Mosher MR#: [id number] : 1965 Acct:[id number] Age/Sex: 58 / M Date of Service: 09/25/24 Loc: ED Accession Number: [id number] Procedure: XR knee LT 1to2V Ordering Provider: Winnie Correa MD PROCEDURE: XR KNEE LT 1TO2V INDICATIONS: pain, effusion TECHNIQUE: 2 views of the knee were acquired. COMPARISON: None. FINDINGS: Bones: No fractures or dislocations. No suspicious bony lesions. Soft tissues: Moderate joint effusion. No suspicious soft tissue calcifications. IMPRESSION: No acute bony abnormality. Moderate knee joint effusion. Dictated by: Franklin Guzmán M.D. on 09/25/2024 at 17:54 Approved by: Franklin Guzmán M.D. on 09/25/2024 at 17:54 Left lower extremity venous Doppler vascular ultrasound: Radiologist's Impression: [address] [address] Ultrasound Report Signed Patient: Benjamin Mosher MR#: [id number] : 1965 Acct:[id number] Age/Sex: 58 / M Date of Service: 09/25/24 Loc: ED Accession Number: [id number] Procedure: US periph venous low extrem lt Ordering Provider: Winnie Correa MD PROCEDURE: US PERIPH VENOUS LOW EXTREM LT INDICATIONS: pain and swelling, ? popliteal cyst. Surgery 09/22 TECHNIQUE: Real-time imaging, as well as color and pulse Doppler interrogation, were performed of the lower extremity deep veins from the inguinal ligament to the popliteal fossa, with documentation of the visualized calf veins. COMPARISON: None. FINDINGS: The common femoral, femoral, popliteal, and the visualized calf veins are normally compressible, and free of intraluminal thrombus. Color and pulse Doppler demonstrate normal phasic intraluminal flow. There is normal augmentation response to distal compression maneuver. IMPRESSION: No findings of lower extremity deep venous thrombosis. No popliteal cyst visualized. Dictated by: Franklin Guzmán M.D. on 09/25/2024 at 18:34 Approved by: Franklin Guzmán M.D. on 09/25/2024 at 18:34 ECG Data Attestation EKG: I personally reviewed and interpreted this ECG as follows: Interpretation: Normal sinus rhythm with rate of 87, no obvious ST segment elevation or depressions. [place] 182, QRS 98, QTC 459. MDM Narrative Medical decision making narrative: 58-year-old male with history of gout, postop day 4 gastric bypass surgery done in [place], no injury to the knee before during or after surgery recalled, now with left knee pain and swelling. No fever on triage, elevated blood pressure in context of knee pain, sirs screen negative. Left knee effusion on examination, no medial or lateral joint line tenderness. Limited range of motion due to pain and effusion. Ultrasound study ordered after triage, as well as x-rays. X-ray left knee ordered from triage, negative for acute bony injuries, no mention of tophus changes, effusion present. See radiology report Ultrasound Doppler ultrasound left lower extremity, negative for clot, also no visualized popliteal/Bakers cyst, no hematoma or SQ mass. Some left knee effusion present. See radiology report Patient consented for left knee arthrocentesis, unsuccessful attempt medial approach, no fluid aspirated for studies. Will consult ortho 193, case discussed with Dr. [facility], concern about elevated CRP, recent stress of major gastric surgery could cause gouty flare, patient in considerable pain, large habitus, significant pain, advises admission, treatment with oral colchicine for now. Hold on antibiotics for now. He will consult. He could offer patient intra-articular joint injection and/or aspiration re- attempt tomorrow if not symptomatically improving. Patient/ amenable to this plan. PCP duy Post will contact hospitalist Karin, case discussed with hospitalist Dr. Elmore, accepts patient for admission to observation Discharge Plan Departure Patient Disposition: Admitted as Observation Clinical Impression: Left knee pain, Effusion of left knee, History of gout Admit Date/Time: 09/25/24 20:07 Admit Provider: Delgado Elmore
[2024-09-25 18:33] LABS: Erythrocyte Sedimentation Rate 20 MM/HR (0-15)
[2024-09-25] MEDS: COLCHICINE 0.6 MG TABLET 1.2 MG PO (18:33)
[2024-09-25 18:37] LABS: C-Reactive Protein Quant 20.4 mg/dL (<1.0)
[2024-09-25] MEDS: HYDROMORPHONE 1 MG INJ 0.5 MG IV ×2 (19:22→23:45)
[2024-09-25] MEDS: KETOROLAC 30 MG/ML VIAL 15 MG IV (19:23)
[2024-09-25] MEDS: LIDOCAINE 1% W/EPI 20 ML INJ (19:30)
[2024-09-25] MEDS: OXYCODONE/ACETAMINOPHEN 5/325 TABLET 1 TAB PO (21:24)
[2024-09-26] VITALS (39 sets, daily range): BP systolic 143–190; BP diastolic 77–93; PULSE 83–106; RESP 18; TEMP 37.3; O2SAT 91–99
[2024-09-26 01:00] LABS: MRSA (Nasal) PCR NOT DETECTED (Not Detect)
[2024-09-26] MEDS: MORPHINE 2 MG/ML INJ IV ×4 (01:20→19:45)
[2024-09-26] MEDS: HYDROMORPHONE 1 MG INJ IV ×6 (02:29→21:45)
[2024-09-26] MEDS: OXYCODONE/ACETAMINOPHEN 5/325 TABLET 1 TAB PO (03:58)
[2024-09-26] MEDS: OXYCODONE IR 5 MG TABLET PO ×2 (04:52→15:51)
[2024-09-26 05:29] LABS: Add Manual Diff / Slide Review NO; Basophils Absolute Auto 0 /uL (0-100); Basophils Percent Auto 0.3 % (0-2); Eosinophils Absolute Auto 100 /uL (0-450); Eosinophils Percent Auto 0.7 % (2-4); Hematocrit 40.7 % (41-53); Hemoglobin 13.4 g/dL (13.5-17.5); Lymphocytes Absolute Auto 1600 /uL (1100-4500); Lymphocytes Percent Auto 16.1 % (25-40); Mean Corpuscular Hemoglobin 27.1 PG (26-34); Mean Corpuscular Volume 82.2 fL (80-100); Monocytes Absolute Auto 1500 /uL (0-900); Monocytes Percent Auto 14.9 % (3-14); Neutrophils Absolute Auto 6900 /uL (1500-7000); Platelet Count 276 X10^3/uL (150-400); Red Blood Cell Count 4.95 X10^6/uL (4.5-5.9); Red Cell Distribution Width 14.8 % (11.6-14.8); White Blood Cell Count 10.2 X10^3/uL (4.5-11.0)
[2024-09-26 05:31] LABS: Alanine Aminotransferase 108 IU/L (<50); Albumin 3.7 g/dL (3.5-5.0); Albumin Globulin Ratio 1.4 (1.0-2.8); Alkaline Phosphatase 112 U/L (38-126); Aspartate Aminotransferase 43 IU/L (17-59); Bilirubin Total 1.2 mg/dL (0.2-1.3); Blood Urea Nitrogen 15 mg/dL (9-20); Calcium 8.9 mg/dL (8.4-10.2); Carbon Dioxide 25 mmol/L (22-32); Chloride 98 mmol/L (98-107); Estimated Glomerular Filt Rate > 60 mL/min (>60); Globulin 2.6 g/dL (1.7-4.1); Glucose 115 mg/dL (70-100); HEMOLYSIS 21 (0-50); Potassium 3.8 mmol/L (3.4-5.1); Sodium 132 mmol/L (137-145); Total Protein 6.3 g/dL (6.3-8.2)
--- NOTE | 2024-09-26 06:28 | P.HP_ITS ---
History of Present Illness History of Present Illness Chief complaint: Lt knee pain Narrative: 58-year-old male with past medical history of obstructive sleep apnea, gout, hypertension and recent gastric bypass surgery done at [facility] presents with left knee pain. Of note, the patient is post-op day four from his gastric bypass. Over the last few days, the patients states that he has increasing left knee pain with some swelling. The patient denies any injury or any previous sugery to his left knee. The patient is concerned of a gout flare up. Otherwise the patient denies any fever, chills, nausea, vomiting or diarrhea.? In our ER, the patient with hemodynamically stable. WBC was 12,000 with elevated CRP. X-ray of the left knee shows no bony injury but did show some effusion. Ultrasound of left lower extremity show no DVT. An attempt for left knee arthrocentesis was unsuccessful by our ER physician. Dr Escobar from orthopedic was consulted but recommended no systemic steroid due to recent gastric bypass. He advised that we admit the patient for pain control and oral colchicine. He will consult on the patient tomorrow and consider intra articular joint injection with steroids versus aspiration reattempt if symptoms not improving.? [facility] Medical History (Updated 09/25/24 @ 18:59 by Moise Blum MD) Nicotine use disorder Benign essential HTN Knee pain Sleep apnea Gout Surgical History History of back surgery Social History household members: family and children Smoking Status: Former smoker Meds Home Medications and Allergies Home Medications Medication Instructions Recorded Confirmed Type colchicine 0.6 mg tablet 0.6 mg PO DAILY 3 months #30 tabs 09/26/23 09/25/24 Rx losartan 100 mg tablet 100 mg PO DAILY blood pressure #90 11/25/23 09/25/24 Rx tabs allopurinol 300 mg tablet 300 mg PO BID #180 tabs 12/23/23 09/25/24 Rx acetaminophen 500 mg tablet 500 mg PO Q4H PRN pain 09/25/24 09/25/24 History enoxaparin 40 mg/0.4 mL 40 mg DAILY 09/25/24 09/25/24 History subcutaneous syringe methocarbamol 750 mg tablet 750 mg PO 3XD 09/25/24 09/25/24 History omeprazole 20 mg capsule,delayed 20 mg PO DAILY 09/25/24 09/25/24 History release ondansetron 8 mg disintegrating 8 mg PO Q8H PRN nausea/vomiting 09/25/24 09/25/24 History tablet oxycodone 5 mg tablet 5 mg PO Q6H PRN pain 09/25/24 09/25/24 History polyethylene glycol 3350 17 gram 17 g PO DAILY 09/25/24 09/25/24 History oral powder packet (Miralax) ursodiol 300 mg capsule 300 mg PO BID 09/25/24 09/25/24 History Allergies Allergy/AdvReac Type Severity Reaction Status Date / Time No Known Drug Allergies Allergy Verified 09/25/24 17:07 Review of Systems Review of Systems ROS: Yes All systems reviewed with the patient and are negative except as otherwise documented Exam Vital Signs (past 8 hours): Oxygen Delivery Method Room Air Narrative Exam Narrative: GENERAL: The patient is not in any acute distressed. Awake and alert. HEENT: Nonicteric sclerae, PERRLA, EOMI. Oropharynx clear. Moist mucous membranes. Conjunctivae appear well perfused. HEART: Regular rate and rhythm without murmurs. No lower extremities edema. LUNGS: Clear to auscultation bilaterally. No wheezing, crackles or rhonchi ABDOMEN: Soft, positive bowel sounds, nontender. SKIN: No rash, no excessive bruising, petechiae, or purpura. Left knee slightly swolen and tender NEUROLOGIC: AxO x 3. Cranial nerves II-XII intact without motor/sensory deficit. Objective Labs 09/26/24 05:08 09/26/24 05:08 Labs: Laboratory Results - last 24 hr 09/25/24 09/25/24 09/26/24 17:58 21:30 05:08 WBC 12.4 H 10.2 RBC 5.37 4.95 Hgb 14.3 13.4 L Hct 44.3 40.7 L MCV 82.5 82.2 MCH 26.6 27.1 MCHC 32.3 33.0 RDW 15.4 H 14.8 Plt Count 292 276 Neut % (Auto) 81.6 H 68.0 Lymph % (Auto) 8.5 L 16.1 L [place] % (Auto) 9.4 14.9 H Eos % (Auto) 0.2 L 0.7 L Baso % (Auto) 0.3 0.3 Neut # (Auto) 34586 H 6900 Lymph # (Auto) 1100 1600 [place] # (Auto) 1200 H 1500 H Eos # (Auto) 0 100 Baso # (Auto) 0 0 ESR 20 H Sodium 136 L 132 L Potassium 3.7 3.8 Chloride 98 98 Carbon Dioxide 27 25 BUN 15 15 Creatinine 0.99 0.75 Estimated GFR > 60 > 60 BUN/Creatinine Ratio 15.2 20.0 Glucose 118 H 115 H Uric Acid 4.2 Calcium 9.0 8.9 Total Bilirubin 1.0 1.2 AST 54 43 ALT 141 H 108 H Alkaline Phosphatase 108 112 C-Reactive Protein 20.4 H Total Protein 7.8 6.3 Albumin 4.5 3.7 Globulin 3.3 2.6 Albumin/Globulin Ratio 1.4 1.4 Nasal Screen MRSA (PCR) Not detected Assessment & Plan Assessment & Plan narrative: Left knee pain with effusion. Admit the patient to medical observation. Could be from severe gout flare up.? As stated above we will continue pain control.? No systemic steroid recommended at this time. Will continue colchicine and PRN pain medication including IV Dilaudid. Patient does not have signs of sepsis right now and per orthopedic surgery septic arthritis is less likely.? Hold antibiotic. Orthopedic surgery will consult in the morning regarding possible localized joint steroid injection versus reaspiration. PT, OT . Hypertension, monitor blood pressure and treat accordingly. Gout . Like severe flare up. Continue colchicine but hold systemic steroid due to recent gastric bypass.? DVT prophylaxis Hep sub q? Code status full code? Disposition likely home in 1 to 2 days? Time-Based Coding :: [TOTAL MINUTES] spent with patient and on the chart (including review of chart, obtaining history, exam, reviewing outside data, placing orders, documenting exam and treatment plan, and counseling patient) on [DATE].
--- NOTE | 2024-09-26 06:33 | PC.NURSE ---
pt arrived from ER via stretcher, pt assisted over to bed via slider board, A&Ox4, difficulty moving L knee due to pain, analgesics given with little effect, MD notified and orders adjusted with mild to mod effect, pt still asking for more pain meds, MD notified, no new orders at this time, hypertensive with pain, lungs clear, O2 sats 85-92% on RA when asleep, 2L NC applied, RT aware that pt wears CPAP at home and is declining hospital CPAP at this times, abd round soft with BS, x6 lap sites with dsgs intact from recent gastric bypass surgery, abd binder maintained, voiding via urinal, L knee bandaid intact, initially 1+ non pitting swelling around knee cap, overnight bruising noted around kneecap, border of bruise outlined and monitored, ice pack applied under knee per pt request, call gates within reach, continue to monitor
[2024-09-26] MEDS: LOSARTAN 50 MG TABLET 100 MG PO (08:22)
[2024-09-26] MEDS: ACETAMINOPHEN 325 MG TABLET 650 MG PO (08:22)
[2024-09-26] MEDS: COLCHICINE 0.6 MG TABLET PO ×2 (08:23→20:48)
[2024-09-26] MEDS: allopurinoL 100 MG TABLET 300 MG PO ×2 (08:23→20:48)
[2024-09-26] MEDS: polyethylene glycoL 3350 17 GM POWD.PACK PO (08:23)
[2024-09-26] MEDS: methocarbamoL 500 MG TABLET 750 MG PO ×3 (08:23→20:48)
[2024-09-26] MEDS: SODIUM CHLORIDE 0.9% FLUSH 10 ML IV ×2 (08:23→20:48)
[2024-09-26] MEDS: PANTOPRAZOLE DR 20 MG TABLET PO (08:23)
--- NOTE | 2024-09-26 14:18 | CM.DANOTE ---
Addendum entered by MAHESH Deng 09/26/24 14:21: ADD: According to RN, patient had recent gastric bypass surgery and has been recovering at home without complication. Original Note: Initial DCP Assessment Note Pt is a 58 yo male, resident of [place], arrives with knee pain, found to have a gout flare. PCP: Mariluz Gallagher Payer: Andreina Marlow Reviewed chart, pt discussed in multidisciplinary rounds this morning. Patient lives independently with spouse. Patient is complaining of a lot of pain from this gout flare. Patient is expected to remain here this evening, possible discharge 09/27 depending on severity of symptoms. No barriers identified at this time to patient's safe discharge home w/family to assist; close outpatient f/u recommended. CM team will plan to follow clinical course closely in case any DC needs or concerns arise. MAHESH Shearer Discharge Planning/Care Management CM Discharge Assessment Start: 09/26/24 14:15 Freq: Status: Active Protocol: Document 09/26/24 14:15 AWA (Rec: 09/26/24 14:17 AWA [id number]) Discharge Planning Assessment Assigned State Director MAHESH Belcher DPOA/Assigned Designee Name Teresa Mosher, spouse Contact Information [phone] Advance Directives? No History Provided By Medical Record Prior Living Arrangements House Household Members family,children Type of transporation used prior to Drives own vehicle admit [place] with ADL's Yes Is patient alert and oriented? Yes Barriers to Discharge No Discharge Plan Home Transportation Arrangement Family Referrals Initiated None needed
--- NOTE | 2024-09-26 14:46 | PM.PN.1 ---
Subjective Subjective Interval history: 58 M admitted with uncontrolled pain due to acute gout flare after recent gastric bypass surgery. Still with severe left knee pain today. Exam Vital Signs (past 8 hours): - 09/26/24 07:00 09/26/24 07:00 09/26/24 07:30 Pulse Rate 88 88 Blood Pressure Pulse Oximetry 93 94 Oxygen Delivery Method Room Air 09/26/24 08:00 09/26/24 08:01 09/26/24 08:01 Pulse Rate 86 88 Blood Pressure 172/77 H Pulse Oximetry 96 96 Oxygen Delivery Method 09/26/24 08:10 09/26/24 08:22 09/26/24 12:01 Pulse Rate 87 86 Blood Pressure 172/77 H 190/91 H Pulse Oximetry 97 Oxygen Delivery Method Oxygen Delivery Method Room Air Narrative Exam Narrative: GENERAL: The patient is not in any acute distressed. Awake and alert. HEENT: Nonicteric sclerae, PERRLA, EOMI. Oropharynx clear. Moist mucous membranes. Conjunctivae appear well perfused. HEART: Regular rate and rhythm without murmurs. No lower extremities edema. LUNGS: Clear to auscultation bilaterally. No wheezing, crackles or rhonchi ABDOMEN: Soft, positive bowel sounds, nontender. SKIN: No rash, no excessive bruising, petechiae, or purpura. Left knee slightly with ecchymosis over area of attempted aspiration with localized swelling and pain and mild warmth NEUROLOGIC: AxO x 3. Cranial nerves II-XII intact without motor/sensory deficit. Objective Labs 09/26/24 05:08 09/26/24 05:08 Labs: Laboratory Results - last 24 hr 09/25/24 09/25/24 09/26/24 17:58 21:30 05:08 WBC 12.4 H 10.2 RBC 5.37 4.95 Hgb 14.3 13.4 L Hct 44.3 40.7 L MCV 82.5 82.2 MCH 26.6 27.1 MCHC 32.3 33.0 RDW 15.4 H 14.8 Plt Count 292 276 Neut % (Auto) 81.6 H 68.0 Lymph % (Auto) 8.5 L 16.1 L [place] % (Auto) 9.4 14.9 H Eos % (Auto) 0.2 L 0.7 L Baso % (Auto) 0.3 0.3 Neut # (Auto) 92457 H 6900 Lymph # (Auto) 1100 1600 [place] # (Auto) 1200 H 1500 H Eos # (Auto) 0 100 Baso # (Auto) 0 0 ESR 20 H Sodium 136 L 132 L Potassium 3.7 3.8 Chloride 98 98 Carbon Dioxide 27 25 BUN 15 15 Creatinine 0.99 0.75 Estimated GFR > 60 > 60 BUN/Creatinine Ratio 15.2 20.0 Glucose 118 H 115 H Uric Acid 4.2 Calcium 9.0 8.9 Total Bilirubin 1.0 1.2 AST 54 43 ALT 141 H 108 H Alkaline Phosphatase 108 112 C-Reactive Protein 20.4 H Total Protein 7.8 6.3 Albumin 4.5 3.7 Globulin 3.3 2.6 Albumin/Globulin Ratio 1.4 1.4 Nasal Screen MRSA (PCR) Not detected [facility] Medical History (Updated 09/25/24 @ 18:59 by Moise Blum MD) Nicotine use disorder Benign essential HTN Knee pain Sleep apnea Gout Surgical History History of back surgery Social History household members: family and children Smoking Status: Former smoker Assessment & Plan Assessment & Plan narrative: Acute gout flare of left knee - continue colchicine - consider steriods vs orthopedic steroid injection tomorrow - uric acid normal, okay to continue home allopurinol 300 mg BID without change - no NSAIDs with recent gastric bypass - no evidence for septic arthritis, no fever or leukocytosis. Hypertension, monitor blood pressure and treat accordingly. - continue home losartan 100 mg daily Obesity s/p recent gastric bypass surgery The patient is at much higher risk for medical and surgical complications because of their obesity. This increases the difficulty and complexity of medical and surgical interventions and increases the chances of poor outcomes such as morbidity and mortality. DVT prophylaxis - hold in case of possible steroid injection, continue lovenox if no procedures needed. Code status full code?, surrogate is patient's spouse Disposition likely home in 1 to 2 days?depending on pain control and resolution of symptoms. Time-Based Coding :: [TOTAL MINUTES] spent with patient and on the chart (including review of chart, obtaining history, exam, reviewing outside data, placing orders, documenting exam and treatment plan, and counseling patient) on [DATE].
--- NOTE | 2024-09-26 17:39 | PC.NURSE ---
Pt A&Ox4, pain difficult to control with ordered meds. Provider notified. Pt states can only take pills crushed unless, they're the size of a Tick-Tack or smaller, d/t s/ gastric bypass surgery on 09/22. at bedside. Continues to have hypertensive, provider notified. No new orders. Care ongoing.
[2024-09-26] MEDS: ursodioL 300 MG CAPSULE PO (20:48)
[2024-09-26] MEDS: OXYCODONE IR 5 MG TABLET 10 MG PO (23:12)
[2024-09-27] VITALS (30 sets, daily range): BP systolic 130–157; BP diastolic 68–91; PULSE 85–107; RESP 16–19; TEMP 37–37.1; O2SAT 87–100
[2024-09-27] MEDS: HYDROMORPHONE 1 MG INJ 2 MG IV ×5 (00:47→21:34)
[2024-09-27] MEDS: OXYCODONE IR 5 MG TABLET 10 MG PO ×4 (03:55→23:13)
[2024-09-27 06:29] LABS: Add Manual Diff / Slide Review NO; Basophils Absolute Auto 0 /uL (0-100); Basophils Percent Auto 0.4 % (0-2); Eosinophils Absolute Auto 100 /uL (0-450); Eosinophils Percent Auto 1.6 % (2-4); Hematocrit 41.8 % (41-53); Hemoglobin 13.8 g/dL (13.5-17.5); Lymphocytes Absolute Auto 1600 /uL (1100-4500); Lymphocytes Percent Auto 17.6 % (25-40); Mean Corpuscular Hemoglobin 27.1 PG (26-34); Mean Corpuscular Volume 82.3 fL (80-100); Monocytes Absolute Auto 1400 /uL (0-900); Monocytes Percent Auto 16.2 % (3-14); Neutrophils Absolute Auto 5700 /uL (1500-7000); Neutrophils Percent Auto 64.2 % (50-75); Platelet Count 261 X10^3/uL (150-400); Red Blood Cell Count 5.08 X10^6/uL (4.5-5.9); Red Cell Distribution Width 15.1 % (11.6-14.8); White Blood Cell Count 8.9 X10^3/uL (4.5-11.0)
[2024-09-27 06:48] LABS: Alanine Aminotransferase 97 IU/L (<50); Albumin 3.9 g/dL (3.5-5.0); Albumin Globulin Ratio 1.2 (1.0-2.8); Alkaline Phosphatase 129 U/L (38-126); Aspartate Aminotransferase 36 IU/L (17-59); BUN Creatinine Ratio 13.2 (6-22); Bilirubin Total 1.2 mg/dL (0.2-1.3); Blood Urea Nitrogen 14 mg/dL (9-20); Calcium 8.6 mg/dL (8.4-10.2); Carbon Dioxide 29 mmol/L (22-32); Chloride 95 mmol/L (98-107); Estimated Glomerular Filt Rate > 60 mL/min (>60); Globulin 3.2 g/dL (1.7-4.1); Glucose 117 mg/dL (70-100); HEMOLYSIS 16 (0-50); Potassium 4.1 mmol/L (3.4-5.1); Sodium 131 mmol/L (137-145); Total Protein 7.1 g/dL (6.3-8.2)
[2024-09-27] MEDS: allopurinoL 100 MG TABLET 300 MG PO ×2 (09:36→21:32)
[2024-09-27] MEDS: COLCHICINE 0.6 MG TABLET PO ×2 (09:36→21:32)
[2024-09-27] MEDS: ursodioL 300 MG CAPSULE PO ×2 (09:36→21:32)
[2024-09-27] MEDS: LOSARTAN 50 MG TABLET 100 MG PO (09:36)
[2024-09-27] MEDS: PANTOPRAZOLE DR 20 MG TABLET PO (09:36)
[2024-09-27] MEDS: methocarbamoL 500 MG TABLET 750 MG PO ×3 (09:36→21:32)
[2024-09-27] MEDS: polyethylene glycoL 3350 17 GM POWD.PACK PO (09:37)
[2024-09-27] MEDS: SODIUM CHLORIDE 0.9% FLUSH 10 ML IV ×2 (10:25→23:14)
--- NOTE | 2024-09-27 14:56 | DIET.CONS ---
Dietary Consultation Note Admission Date: 09/27/2024 11:25 Assessment: 58 y M admitted for gout flare. RD screened for low MNA score. Had gastric bypass 09/22/24. Is currently on full liquids phase of recovery. Met w/ pt at bedside. Reports tolerating liquids but early satiety r/t to gastric bypass. Has been getting and tolerates Ensure MAX protein. Will continue to provide ONS max protein BID. Ht: 154.94 cm Wt: 151.046 kg BMI: 62.8 UBW: 153.768 kg on 06/14/24 Last BM: 09/22/24 (09/25/24 21:12) MNA: 10 Jose Juan Score: 21 Diet: 09/26/24 Breakfast Full Liquid Diet Diet Modifications: Labs: RBC 5.08 X10^6/uL (4.5-5.9) 09/27/24 06:22 Hgb 13.8 g/dL (13.5-17.5) 09/27/24 06:22 Hct 41.8 % (41-53) 09/27/24 06:22 Creatinine 1.06 mg/dL (0.66-1.25) 09/27/24 06:22 Electronically Signed by: Albina Jules 09/27/24 14:56 Clinical Dietitian [address] [address]
--- NOTE | 2024-09-27 15:01 | PM.PN.1 ---
Subjective Subjective Interval history: 58 M admitted with uncontrolled pain due to acute gout flare after recent gastric bypass surgery. Still with severe left knee pain today. Asked for evaluation for a knee steroid injection with orthopedics, pending consultation Exam Vital Signs (past 8 hours): - 09/27/24 07:30 09/27/24 07:52 09/27/24 07:52 Temperature 98.8 F Pulse Rate 92 H 88 Respiratory Rate 16 Blood Pressure 134/68 Pulse Oximetry 90 L 96 09/27/24 08:00 Temperature Pulse Rate 85 Respiratory Rate Blood Pressure Pulse Oximetry 91 Oxygen Delivery Method Room Air Oxygen Flow Rate 0 Narrative Exam Narrative: GENERAL: The patient is not in any acute distressed. Awake and alert. HEENT: Nonicteric sclerae, PERRLA, EOMI. Oropharynx clear. Moist mucous membranes. Conjunctivae appear well perfused. HEART: Regular rate and rhythm without murmurs. No lower extremities edema. LUNGS: Clear to auscultation bilaterally. No wheezing, crackles or rhonchi ABDOMEN: Soft, positive bowel sounds, nontender. SKIN: No rash, no excessive bruising, petechiae, or purpura. Left knee slightly with ecchymosis over area of attempted aspiration with localized swelling and pain and mild warmth NEUROLOGIC: AxO x 3. Cranial nerves II-XII intact without motor/sensory deficit. Objective Labs 09/27/24 06:22 09/27/24 06:22 Labs: Laboratory Results - last 24 hr 09/27/24 06:22 WBC 8.9 RBC 5.08 Hgb 13.8 Hct 41.8 MCV 82.3 MCH 27.1 MCHC 33.0 RDW 15.1 H Plt Count 261 Neut % (Auto) 64.2 Lymph % (Auto) 17.6 L [place] % (Auto) 16.2 H Eos % (Auto) 1.6 L Baso % (Auto) 0.4 Neut # (Auto) 5700 Lymph # (Auto) 1600 [place] # (Auto) 1400 H Eos # (Auto) 100 Baso # (Auto) 0 Sodium 131 L Potassium 4.1 Chloride 95 L Carbon Dioxide 29 BUN 14 Creatinine 1.06 Estimated GFR > 60 BUN/Creatinine Ratio 13.2 Glucose 117 H Calcium 8.6 Magnesium 2.0 Total Bilirubin 1.2 AST 36 ALT 97 H Alkaline Phosphatase 129 H Total Protein 7.1 Albumin 3.9 Globulin 3.2 Albumin/Globulin Ratio 1.2 [facility] Medical History (Updated 09/25/24 @ 18:59 by Moise Blum MD) Nicotine use disorder Benign essential HTN Knee pain Sleep apnea Gout Surgical History History of back surgery Social History household members: family and children Smoking Status: Former smoker Assessment & Plan Assessment & Plan narrative: Acute gout flare of left knee - continue colchicine - discussed with orthopedics about steroid injection, pending consultation today. - uric acid normal, okay to continue home allopurinol 300 mg BID without change - no NSAIDs with recent gastric bypass - no evidence for septic arthritis, no fever or leukocytosis. Hypertension, monitor blood pressure and treat accordingly. - continue home losartan 100 mg daily Obesity s/p recent gastric bypass surgery The patient is at much higher risk for medical and surgical complications because of their obesity. This increases the difficulty and complexity of medical and surgical interventions and increases the chances of poor outcomes such as morbidity and mortality. DVT prophylaxis - hold in case of possible steroid injection, continue lovenox if no procedures needed. Code status full code?, surrogate is patient's spouse Disposition likely home in 1 to 2 days?depending on pain control and resolution of symptoms. Change to inpatient given continued need for IV pain medications Time-Based Coding :: [TOTAL MINUTES] spent with patient and on the chart (including review of chart, obtaining history, exam, reviewing outside data, placing orders, documenting exam and treatment plan, and counseling patient) on [DATE].
[2024-09-28] VITALS (14 sets, daily range): BP systolic 128–145; BP diastolic 61–88; PULSE 80–100; RESP 16–18; TEMP 36.4–36.7; O2SAT 85–99
[2024-09-28] MEDS: HYDROMORPHONE 1 MG INJ 2 MG IV ×2 (01:19→06:32)
[2024-09-28] MEDS: OXYCODONE IR 5 MG TABLET 10 MG PO ×4 (04:13→21:23)
[2024-09-28 06:17] LABS: Add Manual Diff / Slide Review NO; Basophils Absolute Auto 0 /uL (0-100); Basophils Percent Auto 0.4 % (0-2); Eosinophils Absolute Auto 100 /uL (0-450); Eosinophils Percent Auto 1.1 % (2-4); Hematocrit 40.3 % (41-53); Hemoglobin 13.2 g/dL (13.5-17.5); Lymphocytes Absolute Auto 2000 /uL (1100-4500); Lymphocytes Percent Auto 17.9 % (25-40); Mean Corpuscular HGB Conc 32.8 % (30-36); Mean Corpuscular Hemoglobin 26.8 PG (26-34); Mean Corpuscular Volume 81.8 fL (80-100); Monocytes Absolute Auto 1600 /uL (0-900); Monocytes Percent Auto 14.8 % (3-14); Neutrophils Absolute Auto 7300 /uL (1500-7000); Neutrophils Percent Auto 65.8 % (50-75); Platelet Count 308 X10^3/uL (150-400); Red Blood Cell Count 4.93 X10^6/uL (4.5-5.9); Red Cell Distribution Width 15.1 % (11.6-14.8)
[2024-09-28 06:40] LABS: Alanine Aminotransferase 78 IU/L (<50); Albumin 3.9 g/dL (3.5-5.0); Albumin Globulin Ratio 1.2 (1.0-2.8); Alkaline Phosphatase 157 U/L (38-126); Aspartate Aminotransferase 28 IU/L (17-59); BUN Creatinine Ratio 13.1 (6-22); Bilirubin Total 1.2 mg/dL (0.2-1.3); Blood Urea Nitrogen 16 mg/dL (9-20); Calcium 8.7 mg/dL (8.4-10.2); Carbon Dioxide 21 mmol/L (22-32); Chloride 97 mmol/L (98-107); Estimated Glomerular Filt Rate > 60 mL/min (>60); Globulin 3.2 g/dL (1.7-4.1); Glucose 142 mg/dL (70-100); HEMOLYSIS < 15 (0-50); Magnesium 2.1 mg/dL (1.6-2.3); Potassium 4.2 mmol/L (3.4-5.1); Sodium 129 mmol/L (137-145); Total Protein 7.1 g/dL (6.3-8.2)
[2024-09-28] MEDS: methocarbamoL 500 MG TABLET 750 MG PO ×3 (08:40→21:26)
[2024-09-28] MEDS: ursodioL 300 MG CAPSULE PO ×2 (08:40→21:27)
[2024-09-28] MEDS: LOSARTAN 50 MG TABLET 100 MG PO (08:41)
[2024-09-28] MEDS: allopurinoL 100 MG TABLET 300 MG PO ×2 (08:41→21:26)
[2024-09-28] MEDS: PANTOPRAZOLE DR 20 MG TABLET PO (08:42)
[2024-09-28] MEDS: COLCHICINE 0.6 MG TABLET PO ×2 (08:42→21:26)
[2024-09-28] MEDS: SODIUM CHLORIDE 0.9% FLUSH 10 ML IV ×2 (08:51→21:27)
[2024-09-28] MEDS: ACETAMINOPHEN 325 MG TABLET 650 MG PO (11:23)
--- NOTE | 2024-09-28 11:46 | P.PN_ITS ---
Subjective Subjective Interval history: 58 M admitted with uncontrolled pain due to acute gout flare after recent gastric bypass surgery. Still with severe left knee pain today. Discussed with orthopedics, plan for L knee steroid injection later today. Exam Vital Signs (past 8 hours): - 09/28/24 04:00 09/28/24 08:00 09/28/24 08:41 Temperature 98.1 F Pulse Rate 95 H 82 Respiratory Rate 18 Blood Pressure 145/88 H 145/68 H Pulse Oximetry 98 Oxygen Delivery Method Room Air Oxygen Flow Rate 0 Oxygen Delivery Method Room Air Oxygen Flow Rate 0 Narrative Exam Narrative: GENERAL: The patient is not in any acute distressed. Awake and alert. HEENT: Nonicteric sclerae, PERRLA, EOMI. Oropharynx clear. Moist mucous membranes. Conjunctivae appear well perfused. HEART: Regular rate and rhythm without murmurs. No lower extremities edema. LUNGS: Clear to auscultation bilaterally. No wheezing, crackles or rhonchi ABDOMEN: Soft, positive bowel sounds, nontender. SKIN: No rash, no excessive bruising, petechiae, or purpura. Left knee slightly with ecchymosis over area of attempted aspiration with localized swelling and pain and mild warmth NEUROLOGIC: AxO x 3. Cranial nerves II-XII intact without motor/sensory deficit. Objective Labs 09/28/24 06:10 09/28/24 06:10 Labs: Laboratory Results - last 24 hr 09/28/24 06:10 WBC 11.0 RBC 4.93 Hgb 13.2 L Hct 40.3 L MCV 81.8 MCH 26.8 MCHC 32.8 RDW 15.1 H Plt Count 308 Neut % (Auto) 65.8 Lymph % (Auto) 17.9 L [place] % (Auto) 14.8 H Eos % (Auto) 1.1 L Baso % (Auto) 0.4 Neut # (Auto) 7300 H Lymph # (Auto) 2000 [place] # (Auto) 1600 H Eos # (Auto) 100 Baso # (Auto) 0 Sodium 129 L Potassium 4.2 Chloride 97 L Carbon Dioxide 21 L BUN 16 Creatinine 1.22 Estimated GFR > 60 BUN/Creatinine Ratio 13.1 Glucose 142 H Calcium 8.7 Magnesium 2.1 Total Bilirubin 1.2 AST 28 ALT 78 H Alkaline Phosphatase 157 H Total Protein 7.1 Albumin 3.9 Globulin 3.2 Albumin/Globulin Ratio 1.2 PFSH Medical History (Updated 09/25/24 @ 18:59 by Moise Blum MD) Nicotine use disorder Benign essential HTN Knee pain Sleep apnea Gout Surgical History History of back surgery Social History household members: family and children Smoking Status: Former smoker Assessment & Plan Assessment & Plan narrative: Acute gout flare of left knee - continue colchicine - discussed with orthopedics about steroid injection, plan on this today. - uric acid normal, okay to continue home allopurinol 300 mg BID without change - no NSAIDs with recent gastric bypass - no evidence for septic arthritis, no fever or leukocytosis. Hypertension, monitor blood pressure and treat accordingly. - continue home losartan 100 mg daily Obesity s/p recent gastric bypass surgery The patient is at much higher risk for medical and surgical complications because of their obesity. This increases the difficulty and complexity of medical and surgical interventions and increases the chances of poor outcomes such as morbidity and mortality. DVT prophylaxis - hold in case of possible steroid injection, continue lovenox if no procedures needed. Code status full code?, surrogate is patient's spouse Disposition likely home in 1 to 2 days?depending on pain control and resolution of symptoms. Change to inpatient given continued need for IV pain medications Time-Based Coding :: [TOTAL MINUTES] spent with patient and on the chart (including review of chart, obtaining history, exam, reviewing outside data, placing orders, documenting exam and treatment plan, and counseling patient) on [DATE].
--- NOTE | 2024-09-28 11:47 | CM.DPNOTE ---
DCP Cont Reviewed chart. Patient discussed in multidisciplinary rounds. Ortho has been consulted and will plan for steroid injection today at bedside. Medical plan of care unfolding. Expected date of discharge depends on response to steroid injection and symptom improvement. Plan remains discharge home w/family w/close outpatient follow up. CM team following clinical course closely in case any discharge needs or concerns arise. JW
[2024-09-29] VITALS (13 sets, daily range): BP systolic 128–138; BP diastolic 67–75; PULSE 73–87; RESP 18–19; TEMP 36.2–36.6; O2SAT 93–99
[2024-09-29] MEDS: OXYCODONE IR 5 MG TABLET 10 MG PO ×3 (01:13→21:38)
[2024-09-29 05:25] LABS: Add Manual Diff / Slide Review NO; Basophils Absolute Auto 0 /uL (0-100); Basophils Percent Auto 0.3 % (0-2); Eosinophils Absolute Auto 100 /uL (0-450); Eosinophils Percent Auto 1.6 % (2-4); Hematocrit 38.7 % (41-53); Lymphocytes Absolute Auto 1200 /uL (1100-4500); Lymphocytes Percent Auto 13.1 % (25-40); Mean Corpuscular HGB Conc 33.5 % (30-36); Mean Corpuscular Hemoglobin 27.5 PG (26-34); Mean Corpuscular Volume 82.1 fL (80-100); Monocytes Absolute Auto 1200 /uL (0-900); Monocytes Percent Auto 13.6 % (3-14); Neutrophils Absolute Auto 6500 /uL (1500-7000); Neutrophils Percent Auto 71.4 % (50-75); Platelet Count 281 X10^3/uL (150-400); Red Blood Cell Count 4.71 X10^6/uL (4.5-5.9); Red Cell Distribution Width 14.8 % (11.6-14.8); White Blood Cell Count 9.1 X10^3/uL (4.5-11.0)
[2024-09-29 05:38] LABS: Alanine Aminotransferase 69 IU/L (<50); Albumin 3.3 g/dL (3.5-5.0); Albumin Globulin Ratio 1.2 (1.0-2.8); Alkaline Phosphatase 200 U/L (38-126); Aspartate Aminotransferase 34 IU/L (17-59); Bilirubin Total 0.9 mg/dL (0.2-1.3); Blood Urea Nitrogen 22 mg/dL (9-20); Calcium 8.7 mg/dL (8.4-10.2); Carbon Dioxide 23 mmol/L (22-32); Chloride 101 mmol/L (98-107); Estimated Glomerular Filt Rate > 60 mL/min (>60); Globulin 2.7 g/dL (1.7-4.1); Glucose 114 mg/dL (70-100); HEMOLYSIS 42 (0-50); Magnesium 2.3 mg/dL (1.6-2.3); Potassium 4.9 mmol/L (3.4-5.1); Sodium 131 mmol/L (137-145)
--- NOTE | 2024-09-29 07:58 | PM.PN.1 ---
Subjective Subjective Interval history: Admitted with gout flare. S: He still has significant knee pain, but this is improving since yesterday. He would recent gastric bypass surgery. He denies any dyspepsia. Exam Vital Signs (past 8 hours): - 09/29/24 04:00 Temperature 97.4 F L Pulse Rate 77 Respiratory Rate 18 Blood Pressure 135/67 Pulse Oximetry 96 Oxygen Flow Rate 0 Oxygen Delivery Method Room Air Oxygen Flow Rate 0 Narrative Exam Narrative: NAD, alert and oriented. Fluent speech. Lungs are clear, normal rate and effort. Heart is regular, no murmur gallop or rub. Abdomen is soft, non distended. Extremities are free of edema. Left knee is a little swollen, but not red or warm. There is a small water blister over the injection site from yesterday's injection. Objective Labs 09/29/24 05:10 09/29/24 05:10 Labs: Laboratory Results - last 24 hr 09/29/24 05:10 WBC 9.1 RBC 4.71 Hgb 13.0 L Hct 38.7 L MCV 82.1 MCH 27.5 MCHC 33.5 RDW 14.8 Plt Count 281 Neut % (Auto) 71.4 Lymph % (Auto) 13.1 L [place] % (Auto) 13.6 Eos % (Auto) 1.6 L Baso % (Auto) 0.3 Neut # (Auto) 6500 Lymph # (Auto) 1200 [place] # (Auto) 1200 H Eos # (Auto) 100 Baso # (Auto) 0 Sodium 131 L Potassium 4.9 Chloride 101 Carbon Dioxide 23 BUN 22 H Creatinine 0.88 Estimated GFR > 60 BUN/Creatinine Ratio 25.0 H Glucose 114 H Calcium 8.7 Magnesium 2.3 Total Bilirubin 0.9 AST 34 ALT 69 H Alkaline Phosphatase 200 H Total Protein 6.0 L Albumin 3.3 L Globulin 2.7 Albumin/Globulin Ratio 1.2 PFSH Medical History Nicotine use disorder Benign essential HTN Knee pain Sleep apnea Gout Surgical History History of back surgery Social History household members: family and children Smoking Status: Former smoker Assessment & Plan Assessment & Plan narrative: Acute gout flare of left knee, present on admission and slowly improving. - continue colchicine - discussed with orthopedics about steroid injection, plan on this today. - uric acid normal, okay to continue home allopurinol 300 mg BID without change - no NSAIDs with recent gastric bypass - no evidence for septic arthritis, no fever or leukocytosis. Hypertension. Present on admission and stable. - continue home losartan 100 mg daily - monitor blood pressure and treat accordingly Obesity s/p recent gastric bypass surgery, present on admission and stable. The patient is at much higher risk for medical and surgical complications because of their obesity. This increases the difficulty and complexity of medical and surgical interventions and increases the chances of poor outcomes such as morbidity and mortality. SAMRA: He was not able to weight bear. He was at home with all of his bedrooms on the 2nd floor. He was not medically stable for discharge. Anticipate home on 09/30. DVT prophylaxis - hold in case of possible steroid injection, continue lovenox if no procedures needed. Code status full code?, surrogate is patient's spouse Time-Based Coding :: [TOTAL MINUTES] spent with patient and on the chart (including review of chart, obtaining history, exam, reviewing outside data, placing orders, documenting exam and treatment plan, and counseling patient) on [DATE].
[2024-09-29] MEDS: PANTOPRAZOLE DR 20 MG TABLET PO (08:49)
[2024-09-29] MEDS: ursodioL 300 MG CAPSULE PO ×2 (08:49→21:39)
[2024-09-29] MEDS: methocarbamoL 500 MG TABLET 750 MG PO ×3 (08:49→21:38)
[2024-09-29] MEDS: allopurinoL 100 MG TABLET 300 MG PO ×2 (08:49→21:38)
[2024-09-29] MEDS: COLCHICINE 0.6 MG TABLET PO ×2 (08:49→21:38)
[2024-09-29] MEDS: LOSARTAN 50 MG TABLET 100 MG PO (08:50)
[2024-09-29] MEDS: SODIUM CHLORIDE 0.9% FLUSH 10 ML IV ×2 (08:51→21:40)
[2024-09-29] MEDS: HYDROMORPHONE 1 MG INJ 0.5 MG IV (12:27)
[2024-09-29] MEDS: ACETAMINOPHEN 325 MG TABLET 650 MG PO (12:27)
[2024-09-29] MEDS: ENOXAPARIN 40 MG/0.4 ML SYRINGE SUBCUT (21:38)
[2024-09-30] VITALS (14 sets, daily range): BP systolic 80–139; BP diastolic 47–71; PULSE 66–81; RESP 18–19; TEMP 36.4–36.7; O2SAT 92–99
[2024-09-30] MEDS: methocarbamoL 500 MG TABLET 750 MG PO ×3 (08:30→21:42)
[2024-09-30] MEDS: ursodioL 300 MG CAPSULE PO ×2 (08:31→21:44)
[2024-09-30] MEDS: allopurinoL 100 MG TABLET 300 MG PO ×2 (08:34→21:43)
[2024-09-30] MEDS: PANTOPRAZOLE DR 20 MG TABLET PO (08:34)
[2024-09-30] MEDS: COLCHICINE 0.6 MG TABLET PO ×2 (08:34→21:43)
[2024-09-30] MEDS: ENOXAPARIN 40 MG/0.4 ML SYRINGE SUBCUT ×2 (08:35→21:42)
[2024-09-30] MEDS: LOSARTAN 50 MG TABLET 100 MG PO (08:35)
[2024-09-30] MEDS: SODIUM CHLORIDE 0.9% FLUSH 10 ML IV (08:38)
--- NOTE | 2024-09-30 11:53 | PM.PN.1 ---
Subjective Subjective Interval history: Summary: Admitted with a gout flare. He was about a week and a half status post a gastric bypass. Currently avoiding prednisone a nonsteroidals for that reason. He had an injection of steroids in his left knee in his on colchicine. S: He was improving. His knee is less tender and swollen. He was not able to weight bear yet. His home has all of the bedrooms upstairs. Exam Vital Signs (past 8 hours): - 09/30/24 04:00 09/30/24 07:00 09/30/24 08:35 Temperature 97.6 F Pulse Rate 78 72 Respiratory Rate 18 Blood Pressure 139/65 126/70 Pulse Oximetry 96 Oxygen Delivery Method Room Air Oxygen Flow Rate 0 09/30/24 08:35 Temperature 98.1 F Pulse Rate 72 Respiratory Rate 19 Blood Pressure 126/70 Pulse Oximetry 96 Oxygen Delivery Method Oxygen Flow Rate 0 Oxygen Delivery Method Room Air Oxygen Flow Rate 0 Narrative Exam Narrative: NAD, alert and oriented. Fluent speech. Lungs are clear, normal rate and effort. Heart is regular, no murmur gallop or rub. Abdomen is soft, non distended. Extremities: He was still swollen, less tender not warm. He does have some pedal edema as well. Objective Labs 09/29/24 05:10 09/29/24 05:10 [facility] Medical History Nicotine use disorder Benign essential HTN Knee pain Sleep apnea Gout Surgical History History of back surgery Social History household members: family and children Smoking Status: Former smoker Assessment & Plan Assessment & Plan narrative: 1. Acute gout flare of left knee, present on admission and slowly improving. - continue colchicine - discussed with orthopedics about steroid injection, plan on this today. - uric acid normal, okay to continue home allopurinol 300 mg BID without change - no NSAIDs with recent gastric bypass -2. Hypertension. Present on admission and stable. - continue home losartan 100 mg daily - monitor blood pressure 3. Obesity s/p recent gastric bypass surgery, present on admission and stable. The patient is at much higher risk for medical and surgical complications because of their obesity. This increases the difficulty and complexity of medical and surgical interventions and increases the chances of poor outcomes such as morbidity and mortality. PLAN: -Continue colchicine and monitor progress with intra-articular injection of steroids. -Avoid nonsteroidals and prednisone due to recent gastric bypass. SAMRA: He was not able to weight bear. He was at home with all of his bedrooms on the 2nd floor. He was not medically stable for discharge. Anticipate home on 10/01. DVT prophylaxis -continue lovenox. Time-Based Coding :: [TOTAL MINUTES] spent with patient and on the chart (including review of chart, obtaining history, exam, reviewing outside data, placing orders, documenting exam and treatment plan, and counseling patient) on [DATE].
[2024-09-30] MEDS: OXYCODONE IR 5 MG TABLET 10 MG PO ×3 (12:32→21:44)
--- NOTE | 2024-09-30 14:00 | OT.IP.EVAL ---
Current Diagnoses Gout, unspecified (09/27/24) Past Medical History (Last Reviewed 09/29/24 @ 12:23 by Angel Aden MD) Benign essential HTN Gout Knee pain Nicotine use disorder Sleep apnea Surgical History (Last Reviewed 09/29/24 @ 12:23 by Angel Aden MD) History of back surgery Occupational Therapy Inpatient Evaluation/Re-Eval M1 PT/OT-IP Prior Functional Status Start: 09/30/24 15:16 Freq: NEEDED Status: Active Protocol: Document 09/30/24 15:16 [facility] (Rec: 09/30/24 15:36 [facility] [id number]) Medical Review Prior Functional Status Communication I Mobility and Gait I Activities of Daily Living and IADL's Completely independent and works concrete laborer. Social History Household Members family,children Living Arrangements House Number of Floors (Floors) Two Floors Number of Stairs To Enter/Railing? 2 steps to enter the house. Home Environment High Toilet,Walk in Shower Home Equipment Front Wheel Walker,Crutches, Hand Held Shower Additional Social History Comment Pt has a recliner. M2 OT-IP Current Condition Start: 09/30/24 15:16 Freq: Status: Active Protocol: Document 09/30/24 15:16 [facility] (Rec: 09/30/24 15:36 [facility] [id number]) Occupational Therapy Current Condition Current Condition Evaluation Date 09/30/24 Treatment Diagnosis Left knee effusion, gout flare . Diagnosis Onset Date 09/27/24 Post Operative Precautions Abdominal Surgery Precautions Log Roll,Lifting Restrictions, Gait Belt above Incisional Area Other Precautions Pt had a gastric bypass sx 1-1 /2 week ago and pt states to have binder on when up. Able to talk to hospitalist to put in orders to clarify use of binder. M3 OT- IP Subjective and Pain Start: 09/30/24 15:16 Freq: Status: Active Protocol: Document 09/30/24 15:16 [facility] (Rec: 09/30/24 15:36 [facility] [id number]) OT- Subjective Occupational Therapy Visit Type Type Initial Evaluation Visit Start Time 13:20 Visit Stop Time 14:00 Occupational Therapy Visit Comments Patient Comments Pt agreed to get up. Patient/Caregiver Goals TO go home. OT Pain Assessment Pain When Pain Assessed At Rest Pain Present Pain Present Pain Reported Location left knee Intensity 5 Scale Used Numeric (0 - 10) M4 OT- IP ADL's Start: 09/30/24 15:16 Freq: Status: Active Protocol: Document 09/30/24 15:16 [facility] (Rec: 09/30/24 15:36 [facility] [id number]) OT [id number] Comments OT Self-Feeding Comments Not at meal time. OT ADL-Grooming Comments OT Grooming Comments Not performed. OT ADL-Oral Care Comments Oral Care Comments NOt performed. OT ADL-Dressing Comments OT Dressing Comments Pt will need extensive assist due to pain and decreased mobility in his left leg. OT ADL-Toileting Comments OT Toileting Comments Not performed. Pt will benefit from a BSC. Pt states has a high toilet and use of sink to help stand at home if needed. OT ADL-Bathing Comments OT Bathing Comments Pt will benefit from a shower chair at home to use. M5 OT- IP IADL's Start: 09/30/24 15:16 Freq: Status: Active Protocol: Document 09/30/24 15:16 [facility] (Rec: 09/30/24 15:36 [facility] [id number]) OT-Instrumental Activities of Daily Living Home Safety Awareness Awareness of Need for Assistance at Home Good Awareness Ability to Problem Solve Emergency Able to Problem Solve Situations Medication Management Medication Management No Deficits Identified Money Management Money Management No Deficits Identified Meal Preparation Meal Preparation Caregiver Provides Assist Geophysics Professor Geophysics Professor Caregiver Provides Assist M6 OT- IP Functional Cognition Start: 09/30/24 15:16 Freq: Status: Active Protocol: Document 09/30/24 15:16 [facility] (Rec: 09/30/24 15:36 [facility] [id number]) Cognitive Factors Limiting Selfcare Function Cognitive Ability Level of Alertness Alert Patient Orientation Name,Age,Birthday,Month,Date, Year,Day of Week,Place, Situation Attention Span Ability Capable of Focused Attention, Capable of Sustained Attention Ability to Follow Commands Able to Follow One Step Commands Cognitive Comments Cognitive Assessment Comments Pt able to follow commands for mobility needs. Pt needing cues to follow abdominal precautions. OT- Vision and Hearing OT- Hearing Assessment OT- Hearing Assessment WFL OT- Vision Assessment Visual Acuity Glasses For Reading Visual Attentiveness WFL Occular Pursuits WFL M7 OT- IP Mobility and Balance Start: 09/30/24 15:16 Freq: Status: Active Protocol: Document 09/30/24 15:16 [facility] (Rec: 09/30/24 15:36 [facility] [id number]) OT- Bed Mobility Assessment Rolling Level of Assistance Minimal Assistance,Bedrails Supine to Sit Supine to Sit Assist Maximum Assistance,1 Person Assistance,Bedrails Sit to Supine Sit to Supine Assist Maximum Assistance,1 Person Assistance OT-Transfer Assessment Sit to and From Stand Sit to and from Stand Maximum Assistance,1 Person Assistance Comments Mobility Comments MAXA X 1 and heavy use of grab bar to sit to the edge of the bed. Pt MAX Ax1 to stand to the FWW and just able to take a few side steps to the head of the bed and very unsteady. OT- Balance Assessment Sitting Balance and Reactions Static Sitting Balance Ability Good Dynamic Sitting Balance Ability Fair Standing Balance and Reactions Static Standing Balance Ability Poor Dynamic Standing Balance Ability Poor M8 OT- IP Objective Assessments Start: 09/30/24 15:16 Freq: Status: Active Protocol: Document 09/30/24 15:16 [facility] (Rec: 09/30/24 15:36 [facility] [id number]) OT Gross Range of Motion Upper Extremity Range of Motion Assessment Within Functional Limits OT Strength Upper Extremity Strength Assessment Within Functional Limits OT Sensation Assessment Edema Edema Present Edema Comments LLE M9 OT- IP Assessment and Plan Start: 09/30/24 15:16 Freq: Status: Active Protocol: Document 09/30/24 15:16 [facility] (Rec: 09/30/24 15:36 [facility] [id number]) OT Summary Assessment and Plan Potential Rehabilitation Potential Good Analytic Complexity at Evaluation Moderate Summary OT Impairments Pain,Range of Motion,Strength, Balance,Functional Mobility, Grooming,Dressing,Toileting, Bathing,Toilet Transfers, Shower Transfers,Activity Tolerance Progress Towards Goals Slow Progress due to Pain,Slow Progress due to Medical Issues,Slow Progress due to Activity Tolerance Assessment Summary Pt MOD complexity and main barriers are pain, needing MAX A x1 to stand due to his gout /left knee pain, and now needing extensive assist for all ADL and mobility needs. Hopefully as pt medically improves will be able to go home with 24/7 assist otherwise pt may need short skilled rehab. Goals Self-Feeding Goal Independent Grooming Goal Independent Dressing Goal Minimal Assistance Toileting Goal Minimal Assistance Bathing Goal Minimal Assistance Toilet Transfer Goal Standby Assistance Shower Transfer Goal Minimal Assistance Days to Meet Goals 10 Frequency of Treatment Other frequency 5x/week Treatment Plan OT Treatment Plan ADL Training,Functional Mobility,Patient/Family Education,Discharge Planning Discharge Recommendations OT Discharge Recommendations Home with 24/7 Assist Available,Home vs SNF Home Equipment Needs BSC, shower chair, LB dressing equipment Transportation Needs at Discharge Wheelchair/Cabulance
--- NOTE | 2024-09-30 16:19 | PT.IIE ---
Current Diagnoses Gout, unspecified (09/27/24) Surgical History (Last Reviewed 09/29/24 @ 12:23 by Angel Aden MD) History of back surgery Medical History (Last Reviewed 09/29/24 @ 12:23 by Angel Aden MD) Benign essential HTN Gout Knee pain Nicotine use disorder Sleep apnea Physical Therapy Inpatient Evaluation/Re-Eval M1 PT/OT-IP Prior Functional Status Start: 09/30/24 15:16 Freq: NEEDED Status: Active Protocol: Document 09/30/24 15:57 [facility] (Rec: 09/30/24 16:19 [facility] [id number]) Medical Review Prior Functional Status Medical History Reviewed Yes Communication I Mobility and Gait I Activities of Daily Living and IADL's 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 Social History Household Members family,children Living Arrangements House Number of Floors (Floors) Two Floors Number of Stairs To Enter/Railing? 2 steps to enter the house. Home Environment High Toilet,Walk in Shower Home Equipment Front Wheel Walker,Crutches, Hand Held Shower Additional Social History Comment Pt has a recliner. M2 PT-IP Current Condition Start: 09/30/24 13:31 Freq: NEEDED Status: Active Protocol: Document 09/30/24 15:57 [facility] (Rec: 09/30/24 16:19 [facility] [id number]) Physical Therapy Current Condition Current Condition Evaluation Date 09/30/24 Treatment Diagnosis LLE pain and gout, pt also states he has gout in right foot M3 PT-IP Subjective Start: 09/30/24 13:31 Freq: NEEDED Status: Active Protocol: Document 09/30/24 15:57 [facility] (Rec: 09/30/24 16:19 [facility] [id number]) Subjective Physical Therapy Visit Type Type Initial Evaluation Visit Start Time 15:57 Visit Stop Time 16:12 Number of ASSOCIATE PROFESSOR OF SURGERY Visits 0 Physical Therapy Visit Comments Patient Comments Pt is agreeable to PT. Therapy Pain Assessment Pain When Pain Assessed At Rest Pain Present Pain Present Pain Reported Location left knee Scale Used Numeric (0 - 10) M4 PT-IP Mobility and Gait Start: 09/30/24 13:31 Freq: NEEDED Status: Active Protocol: Document 09/30/24 15:57 [facility] (Rec: 09/30/24 16:19 [facility] [id number]) PT-Bed Mobility Assessment Rolling Type of Rolling Roll to Right,Roll to Left Level of Assist Contact Guard Assistance Supine to Sit Supine to Sit Contact Guard Assistance,1 Person Assistance,Head of Bed Elevated,Bedrails Sit to Supine Sit to Supine Contact Guard Assistance,Head of Bed Elevated,Bedrails Scooting Scooting to Edge of Bed Contact Guard Assistance PT-Transfer Assessment Sit to and From Stand Sit to and from Stand Contact Guard Assistance,1 Person Assistance,Use of Upper Extremities Equipment Transfer Assistive Device Front Wheeled Walker Orthotic/Prosthetic Devices or Brace: No Transfers Transfer Destination Bed Transfer Technique Side stepping up to HOB Transfer Ability Level of Assist Contact Guard Assistance,1 Person Assistance,Use of Upper Extremities Comments Mobility Comments Pt does not give numeric number to pain, dependent to don socks for mobility, cues for log rolling to protect recent abdominal surgery, PT blocks bariatric RW for STS and pt pushes up from it as he cannot stand when pushing up from the bed Gait Assessment Gait Gait Assistance Required: Contact Guard Assist Distance (Feet) 3 Able to Maintain Weight Bearing Status Yes During Gait Assistive Devices Assistive Device Gait Belt,Front Wheeled Walker Orthotic/Prosthetic Devices or Brace: No Gait Deviations General Gait Pattern Antalgic,Decreased Stride Length,Decreased Feet Clearance,Step-to Gait,Wide Based Gait Factors Limiting Gait Function Factors Limiting Gait Function Decreased Activity Tolerance, Limited Range of Motion,Pain, Poor Balance Comments Gait Comments Left side stepping up to HOB PT-Balance Assessment Sitting Balance and Reactions Static Sitting Balance Ability Fair Dynamic Sitting Balance Ability Fair Standing Balance and Reactions Static Standing Balance Ability Fair Dynamic Standing Balance Ability Fair Device Used Bariatric RW M5 PT-IP Objective Assessments Start: 09/30/24 13:31 Freq: NEEDED Status: Active Protocol: Document 09/30/24 15:57 [facility] (Rec: 09/30/24 16:19 [facility] [id number]) Orientation Orientation/Cognition Level of Alertness Alert Orientation Name,Birthday,Place,Situation Language Function Ability No Deficits Noted Safety Awareness Decreased Safety Awareness Memory Description No Deficits Noted Gross Range of Motion Upper Extremity ROM Impairments Defer to OT Lower Extremity ROM Assessment Bilaterally Impaired Impairments Left knee and ankle are red and have edema Strength Lower Extremity Strength Assessment Bilaterally Impaired Comments Strength Comments Pt does not tolerate MMT given pain Coordination Assessment Gross Coordination Gross Coordination Impaired Sensation Assessment Sensation Gross Sensation Right LE Impaired,Left LE Impaired Sensation Description Hyperesthesia Muscle Tone Muscle Tone WNL Yes M6 PT-IP Treatment Start: 09/30/24 13:31 Freq: NEEDED Status: Active Protocol: Document 09/30/24 15:57 [facility] (Rec: 09/30/24 16:19 [facility] [id number]) Physical Therapy Treatment Education Education Provided Precautions Other Treatments Other Treatment Performed Re-ed pt in abdominal precautions, abdominal binder donned M7 PT-IP Assessment and Plan Start: 09/30/24 13:31 Freq: NEEDED Status: Active Protocol: Document 09/30/24 15:57 [facility] (Rec: 09/30/24 16:19 [facility] [id number]) PT Summary Assessment and Plan Potential Rehabilitation Potential Fair Status of Condition at Evaluation Evolving Summary Impairments Pain,ROM,Strength,Balance, Coordination,Bed Mobility, Transfers,Gait,Activity Tolerance Progress Towards Goals Slow Progress due to Pain Assessment Summary Pt is a 58 y/o male presenting with LLE gout and pt c/o gout in right ankle as well. He recently underwent bariatric bypass surgery and has abdominal binder donned in bed . Pt requires encouragement and CGA for log rolling, transfer and side stepping today. He does not rate pain when asked twice. Goals Bed Mobility Goal Independent Transfer Goal Independent,Front Wheeled Walker Gait Goal Independent,Front Wheel Walker Gait Distance 75 Other Goals Pt will ascend and descend 2 steps with LRAD and no more than CGA to allow safe home entrance. Days to Meet Goals 5 Frequency of Treatment Frequency Of Treatment Once a Day Treatment Plan Physical Therapy Treatment Plan Bed Mobility Training,Transfer Training,Gait Training, Therapeutic Exercise,Balance Retraining,Discharge Planning, Hot or Cold Pack Precautions Abdominal Surgery Precautions Log Roll,Lifting Restrictions, Gait Belt above Incisional Area Weight Bearing Status Allowed Weight Bearing Amount (enter % No restrictions or #) (%) Recommendations To Nursing Amount of Assist Needed 1 Person Assist Discharge Recommendations PT Discharge Recommendations Home with Assistance,Home Health Transportation Needs at Discharge Private Vehicle,Wheelchair/ Cabulance
--- NOTE | 2024-09-30 19:24 | PC.NURSE ---
pt worked w/ PT/OT today; he is able to stand at bedside and get on BSC; unable to ambulate; oral pain meds given today; ice pack per pt request
[2024-10-01] VITALS (9 sets, daily range): BP systolic 127–147; BP diastolic 61–75; PULSE 61–70; RESP 16–18; TEMP 36.2; O2SAT 94–99
[2024-10-01] MEDS: OXYCODONE IR 5 MG TABLET 10 MG PO ×3 (04:41→20:27)
[2024-10-01] MEDS: SODIUM CHLORIDE 0.9% FLUSH 10 ML IV ×3 (04:45→20:29)
[2024-10-01] MEDS: polyethylene glycoL 3350 17 GM POWD.PACK PO (09:04)
[2024-10-01] MEDS: ENOXAPARIN 40 MG/0.4 ML SYRINGE SUBCUT ×2 (09:04→20:30)
[2024-10-01] MEDS: LOSARTAN 50 MG TABLET 100 MG PO (09:05)
[2024-10-01] MEDS: methocarbamoL 500 MG TABLET 750 MG PO ×3 (09:08→20:28)
[2024-10-01] MEDS: ursodioL 300 MG CAPSULE PO ×2 (09:09→20:27)
[2024-10-01] MEDS: allopurinoL 100 MG TABLET 300 MG PO ×2 (09:09→20:27)
[2024-10-01] MEDS: COLCHICINE 0.6 MG TABLET PO ×2 (09:09→20:27)
[2024-10-01] MEDS: PANTOPRAZOLE DR 20 MG TABLET PO (09:09)
--- NOTE | 2024-10-01 11:03 | OT.IP.TRT ---
Current Diagnoses Gout, unspecified (09/27/24) Occupational Therapy Treatment Note M2 OT-IP Current Condition Start: 09/30/24 15:16 Freq: Status: Active Protocol: Document 09/30/24 15:16 [facility] (Rec: 09/30/24 15:36 [facility] [id number]) Occupational Therapy Current Condition Current Condition Evaluation Date 09/30/24 Treatment Diagnosis Left knee effusion, gout flare . Diagnosis Onset Date 09/27/24 Post Operative Precautions Abdominal Surgery Precautions Log Roll,Lifting Restrictions, Gait Belt above Incisional Area Other Precautions Pt had a gastric bypass sx 1-1 /2 week ago and to have binder on when up. Able to talk to hospitalist to put in orders to clarify use of binder. M3 OT- IP Subjective and Pain Start: 09/30/24 15:16 Freq: Status: Active Protocol: Document 10/01/24 11:05 [facility] (Rec: 10/01/24 11:24 [facility] [id number]) OT- Subjective Occupational Therapy Visit Type Type Treatment Note Visit Start Time 10:45 Visit Stop Time 11:03 Occupational Therapy Visit Comments Patient Comments Pt agreed to get up. Patient/Caregiver Goals To go home. OT Pain Assessment Pain When Pain Assessed During Mobility Pain Present Pain Present Pain Reported Location left knee Pain Behaviors Facial Grimacing M4 OT- IP ADL's Start: 09/30/24 15:16 Freq: Status: Active Protocol: Document 10/01/24 11:05 [facility] (Rec: 10/01/24 11:24 [facility] [id number]) OT [id number] General Evaluation Self-Feeding Ability Independent OT ADL-Grooming General Evaluation Grooming Ability Independent Comments OT Grooming Comments Pt having to sit whiel doing . OT ADL-Oral Care General Eval Oral Care Ability Independent Comments Oral Care Comments ABle to do seated. OT ADL-Dressing General Eval Lower Body Dressing Ability Maximum Assistance Comments OT Dressing Comments Assist for socks. OT ADL-Toileting Comments OT Toileting Comments Pt using the urinal. OT ADL-Bathing Comments OT Bathing Comments Pt will benefit from a shower chair at home to use. M5 OT- IP IADL's Start: 09/30/24 15:16 Freq: Status: Active Protocol: Document 09/30/24 15:16 [facility] (Rec: 09/30/24 15:36 [facility] [id number]) OT-Instrumental Activities of Daily Living Home Safety Awareness Awareness of Need for Assistance at Home Good Awareness Ability to Problem Solve Emergency Able to Problem Solve Situations Medication Management Medication Management No Deficits Identified Money Management Money Management No Deficits Identified Meal Preparation Meal Preparation Caregiver Provides Assist Hr Administrator Hr Administrator Caregiver Provides Assist M6 OT- IP Functional Cognition Start: 09/30/24 15:16 Freq: Status: Active Protocol: Document 10/01/24 11:05 [facility] (Rec: 10/01/24 11:24 [facility] [id number]) Cognitive Factors Limiting Selfcare Function Cognitive Comments Cognitive Assessment Comments Pt needing encouragement to move. M7 OT- IP Mobility and Balance Start: 09/30/24 15:16 Freq: Status: Active Protocol: Document 10/01/24 11:05 [facility] (Rec: 10/01/24 11:24 [facility] [id number]) OT- Bed Mobility Assessment Supine to Sit Supine to Sit Assist Standby Assistance,Bedrails OT-Transfer Assessment Sit to and From Stand Sit to and from Stand Contact Guard Assistance Transfers Transfer Ability Standby Assistance Technique Transfer Destination Bed,Chair Comments Mobility Comments Assist with bed rail to roll and able to get up on his own. CGA to stand initially to stand to the FWW. Pt will benefit from a bariatric FWW. OT- Balance Assessment Sitting Balance and Reactions Static Sitting Balance Ability Normal Dynamic Sitting Balance Ability Good Standing Balance and Reactions Static Standing Balance Ability Good Dynamic Standing Balance Ability Fair M8 OT- IP Objective Assessments Start: 09/30/24 15:16 Freq: Status: Active Protocol: Document 09/30/24 15:16 [facility] (Rec: 09/30/24 15:36 [facility] [id number]) OT Gross Range of Motion Upper Extremity Range of Motion Assessment Within Functional Limits OT Strength Upper Extremity Strength Assessment Within Functional Limits OT Sensation Assessment Edema Edema Present Edema Comments LLE M9 OT- IP Assessment and Plan Start: 09/30/24 15:16 Freq: Status: Active Protocol: Document 10/01/24 11:05 [facility] (Rec: 10/01/24 11:24 [facility] [id number]) OT Summary Assessment and Plan Potential Rehabilitation Potential Good Analytic Complexity at Evaluation Moderate Summary OT Impairments Pain,Range of Motion,Strength, Balance,Functional Mobility, Grooming,Dressing,Toileting, Bathing,Toilet Transfers, Shower Transfers,Activity Tolerance Progress Towards Goals Progressing Toward Goals Assessment Summary Pt moving much better today and just CGA to hold the FWW in place when coming to stand. Pt will benefit from getting a bariatric fww and BSC, and LB dressing equipment. Pt to go home with assist when medically stable. Pt not ready to shower and pt states to ask nursing later. Pt to go home with assist. Goals Self-Feeding Goal Independent Grooming Goal Independent Dressing Goal Minimal Assistance Toileting Goal Minimal Assistance Bathing Goal Minimal Assistance Toilet Transfer Goal Standby Assistance Shower Transfer Goal Minimal Assistance Days to Meet Goals 5 Frequency of Treatment Other frequency 5x/week Treatment Plan OT Treatment Plan ADL Training,Functional Mobility,Patient/Family Education,Discharge Planning Discharge Recommendations OT Discharge Recommendations Home with Assistance Home Equipment Needs Bariatric FWW and BSC, LB dressing equipment Transportation Needs at Discharge Private Vehicle
--- NOTE | 2024-10-01 11:15 | PT.IPTN ---
Current Diagnoses Gout, unspecified (09/27/24) Physical Therapy Treatment Note M2 PT-IP Current Condition Start: 09/30/24 13:31 Freq: NEEDED Status: Active Protocol: Document 09/30/24 15:57 MB (Rec: 09/30/24 16:19 MB [id number]) Physical Therapy Current Condition Current Condition Evaluation Date 09/30/24 Treatment Diagnosis LLE pain and gout, pt also states he has gout in right foot M3 PT-IP Subjective Start: 09/30/24 13:31 Freq: NEEDED Status: Active Protocol: Document 10/01/24 11:45 TS (Rec: 10/01/24 11:56 TS [id number]) Subjective Physical Therapy Visit Type Type Treatment Note Visit Start Time 11:15 Visit Stop Time 11:40 Number of DIGITAL STRATEGIST SENIOR MANAGER Visits 1 Physical Therapy Visit Comments Patient Comments Pt reports he is feeling better today, he is agreeable to PT. Therapy Pain Assessment Pain When Pain Assessed During Mobility Pain Present Pain Present Pain Reported M4 PT-IP Mobility and Gait Start: 09/30/24 13:31 Freq: NEEDED Status: Active Protocol: Document 10/01/24 11:45 TS (Rec: 10/01/24 11:56 TS [id number]) PT-Transfer Assessment Sit to and From Stand Sit to and from Stand Contact Guard Assistance,1 Person Assistance,Use of Upper Extremities Equipment Transfer Assistive Device Gait Belt,Front Wheeled Walker Orthotic/Prosthetic Devices or Brace: No Comments Mobility Comments STS with FWW CGA. pt ambulates ~80'SBA with heavy UE assist on FWW and a step to gait. Pt ambuates back to the room. He performs stairs x1 with with single rail and NAILER HAND Elise, pt has some difficulty clearing step. Pt was left back in the chair, all needs met. Gait Assessment Gait Gait Assistance Required: Standby Assistance Distance (Feet) 80 Able to Maintain Weight Bearing Status Yes During Gait Assistive Devices Assistive Device Gait Belt,Front Wheeled Walker Orthotic/Prosthetic Devices or Brace: No Gait Deviations General Gait Pattern Antalgic,Decreased Stride Length,Decreased Feet Clearance,Step-to Gait,Wide Based Gait Factors Limiting Gait Function Factors Limiting Gait Function Decreased Activity Tolerance, Limited Range of Motion,Pain, Poor Balance Stair Climbing Assessment Evaluation Level of Assist On Stairs Minimal Assistance Devices Stair Climbing Assistive Devices Left Railing Technique/Endurance Stair Climbing Direction Ascend and Descend Stair Climbing Technique Step to Step Number of Steps Climbed 1 PT-Balance Assessment Sitting Balance and Reactions Static Sitting Balance Ability Normal Dynamic Sitting Balance Ability Good Standing Balance and Reactions Static Standing Balance Ability Good Dynamic Standing Balance Ability Fair Device Used Bariatric RW M5 PT-IP Objective Assessments Start: 09/30/24 13:31 Freq: NEEDED Status: Active Protocol: Document 09/30/24 15:57 MB (Rec: 09/30/24 16:19 MB [id number]) Orientation Orientation/Cognition Level of Alertness Alert Orientation Name,Birthday,Place,Situation Language Function Ability No Deficits Noted Safety Awareness Decreased Safety Awareness Memory Description No Deficits Noted Gross Range of Motion Upper Extremity ROM Impairments Defer to OT Lower Extremity ROM Assessment Bilaterally Impaired Impairments Left knee and ankle are red and have edema Strength Lower Extremity Strength Assessment Bilaterally Impaired Comments Strength Comments Pt does not tolerate MMT given pain Coordination Assessment Gross Coordination Gross Coordination Impaired Sensation Assessment Sensation Gross Sensation Right LE Impaired,Left LE Impaired Sensation Description Hyperesthesia Muscle Tone Muscle Tone WNL Yes M6 PT-IP Treatment Start: 09/30/24 13:31 Freq: NEEDED Status: Active Protocol: Document 10/01/24 11:45 TS (Rec: 10/01/24 11:56 TS [id number]) Physical Therapy Treatment Education Education Provided Precautions Other Treatments Other Treatment Performed Re-ed pt in abdominal precautions, abdominal binder donned M7 PT-IP Assessment and Plan Start: 09/30/24 13:31 Freq: NEEDED Status: Active Protocol: Document 10/01/24 11:45 TS (Rec: 10/01/24 11:56 [id number]) PT Summary Assessment and Plan Potential Rehabilitation Potential Fair Summary Impairments Pain,ROM,Strength,Balance, Coordination,Bed Mobility, Transfers,Gait,Activity Tolerance Progress Towards Goals Slow Progress due to Pain Assessment Summary pt is making some progress with his mobility but remains limited by pain. He progressed his gait to ~80'SBA with FWW. He performed stairs x1 with single rail and NAILER HAND Elise. Pt had some diffiuclty clearing step, will attempt again tomorrow. PT is recommending home with assist. Goals Bed Mobility Goal Independent Transfer Goal Independent,Front Wheeled Walker Gait Goal Independent,Front Wheel Walker Gait Distance 75 Other Goals Pt will ascend and descend 2 steps with LRAD and no more than CGA to allow safe home entrance. Days to Meet Goals 5 Frequency of Treatment Frequency Of Treatment Once a Day Treatment Plan Physical Therapy Treatment Plan Bed Mobility Training,Transfer Training,Gait Training, Therapeutic Exercise,Balance Retraining,Discharge Planning, Hot or Cold Pack Precautions Abdominal Surgery Precautions Log Roll,Lifting Restrictions, Gait Belt above Incisional Area Weight Bearing Status Allowed Weight Bearing Amount (enter % No restrictions or #) (%) Recommendations To Nursing Amount of Assist Needed 1 Person Assist Discharge Recommendations PT Discharge Recommendations Home with Assistance,Home Health Transportation Needs at Discharge Private Vehicle
--- NOTE | 2024-10-01 12:45 | P.HP_ITS ---
History of Present Illness History of Present Illness Chief complaint: Lt knee pain Narrative: CHIEF COMPLAINT My knee is really painful, especially when I try to bend it. SUBJECTIVE Benjamin Gill reported significant pain in his left knee, particularly when attempting to bend it. He described the pain as being right in the joint. He mentioned that the pain originally seemed to attack from underneath and affirmed that bending the knee is painful. SOCIAL HISTORY None PERTINENT PMH: - Recent gastric bypass surgery (performed within the last week) PRIOR HIP/KNEE PROCEDURES None PHYSICAL EXAM Left Knee Exam: - Examination: No specific visible abnormalities noted. - Pain testing: Significant pain reported with attempts to bend the knee. RADIOLOGY None LABS - Elevated ESR and CRP ASSESSMENT Gout in the left knee with recent gastric bypass surgery, complicating treatment options. PLAN Perform an intra-articular corticosteroid injection in the left knee to manage gout-related inflammation. PATIENT SUMMARY Based on your recent gastric bypass surgery, we decided against using oral steroids due to potential complications. Instead, I administered a steroid injection directly into your left knee to help reduce the inflammation and pain associated with gout. This should provide relief without affecting your gastric bypass recovery. NEXT STEPS - Monitor knee response to the steroid injection. - Assess for potential infection signs. - Follow-up to evaluate symptom relief and consider further treatment if necessary. COUNSELING - Benjamin asked about the pain during the injection, and I explained that it might be uncomfortable but would be quick and beneficial. - I reassured him that the injection should help significantly with the gout- related inflammation. PROCEDURES Left knee corticosteroid injection: - Single dose container - Injectable name: Depo-Medrol - Milligrams injected: 40 mg - Wasted: 0 - JZ I discussed risks, including but not limited to infection, steroid flare, and skin atrophy and hypopigmentation. Patient understood and wished to proceed. The patient was positioned. Ethyl chloride was used to anesthetize the skin. The skin was prepped sterilely with chlorhexidine. The standard lateral portal approach was utilized. The 22g needle was advanced, and the mixture of 4cc of half percent Marcaine and 1 cc of 40-depo ml/ML was infiltrated smoothly. The needle was withdrawn and a Band-Aid placed. The patient tolerated the procedure well and there were no immediate complications. [facility] Medical History Nicotine use disorder Benign essential HTN Knee pain Sleep apnea Gout Surgical History History of back surgery Social History household members: family and children Smoking Status: Former smoker Meds Home Medications and Allergies Home Medications Medication Instructions Recorded Confirmed Type colchicine 0.6 mg tablet 0.6 mg PO DAILY 3 months #30 tabs 09/26/23 09/25/24 Rx losartan 100 mg tablet 100 mg PO DAILY blood pressure #90 11/25/23 09/25/24 Rx tabs allopurinol 300 mg tablet 300 mg PO BID #180 tabs 12/23/23 09/25/24 Rx acetaminophen 500 mg tablet 500 mg PO Q4H PRN pain 09/25/24 09/25/24 History enoxaparin 40 mg/0.4 mL 40 mg DAILY 09/25/24 09/25/24 History subcutaneous syringe methocarbamol 750 mg tablet 750 mg PO 3XD 09/25/24 09/25/24 History omeprazole 20 mg capsule,delayed 20 mg PO DAILY 09/25/24 09/25/24 History release ondansetron 8 mg disintegrating 8 mg PO Q8H PRN nausea/vomiting 09/25/24 09/25/24 History tablet oxycodone 5 mg tablet 5 mg PO Q6H PRN pain 09/25/24 09/25/24 History polyethylene glycol 3350 17 gram 17 g PO DAILY 09/25/24 09/25/24 History oral powder packet (Miralax) ursodiol 300 mg capsule 300 mg PO BID 09/25/24 09/25/24 History Allergies Allergy/AdvReac Type Severity Reaction Status Date / Time No Known Drug Allergies Allergy Verified 09/25/24 17:07 Exam Vital Signs (past 8 hours): - 10/01/24 07:00 10/01/24 09:05 Pulse Rate 70 Blood Pressure 135/64 Oxygen Delivery Method Room Air Oxygen Delivery Method Room Air Oxygen Flow Rate 0 Objective Labs 09/29/24 05:10 09/29/24 05:10 Assessment & Plan Time-Based Coding :: [TOTAL MINUTES] spent with patient and on the chart (including review of chart, obtaining history, exam, reviewing outside data, placing orders, documenting exam and treatment plan, and counseling patient) on [DATE].
[2024-10-01] MEDS: ACETAMINOPHEN 325 MG TABLET 650 MG PO ×2 (13:32→20:26)
--- NOTE | 2024-10-01 15:07 | PM.PN.1 ---
Subjective Subjective Date Patient Seen: 10/01/24 Time Patient Seen: 09:25 Interval history: Narrative: 58-year-old male with past medical history of obstructive sleep apnea, gout, hypertension and recent gastric bypass surgery done at [facility] presents with left knee pain. Of note, the patient is post-op day four from his gastric bypass. Over the last few days, the patients states that he has increasing left knee pain with some swelling. The patient denies any injury or any previous sugery to his left knee. The patient is concerned of a gout flare up. Otherwise the patient denies any fever, chills, nausea, vomiting or diarrhea.? In our ER, the patient with hemodynamically stable. WBC was 12,000 with elevated CRP. X-ray of the left knee shows no bony injury but did show some effusion. Ultrasound of left lower extremity show no DVT. An attempt for left knee arthrocentesis was unsuccessful by our ER physician. Dr Escobar from orthopedic was consulted but recommended no systemic steroid due to recent gastric bypass. He advised that we admit the patient for pain control and oral colchicine. He will consult on the patient tomorrow and consider intra articular joint injection with steroids versus aspiration reattempt if symptoms not improving.? Interval history: The patient reports knee pain has improved though he still has difficulty ambulating. He notes a longstanding history of recurrent gout that he is typically treated with prednisone, however, due to his recent surgery, this is being avoided in preference to colchicine. Exam Vital Signs (past 8 hours): - 10/01/24 09:05 10/01/24 09:07 10/01/24 09:08 Pulse Rate 70 67 Blood Pressure 135/64 134/65 Pulse Oximetry 94 10/01/24 13:01 10/01/24 13:01 Pulse Rate 67 Blood Pressure 133/71 Pulse Oximetry 96 Oxygen Delivery Method Room Air Oxygen Flow Rate 0 Narrative Exam Narrative: NAD, alert and oriented. Fluent speech. Lungs are clear, normal rate and effort. Heart is regular, no murmur gallop or rub. Abdomen is soft, non distended. Extremities: He was still swollen, less tender not warm. He does have some pedal edema as well. Objective Labs 09/29/24 05:10 09/29/24 05:10 [facility] Medical History Nicotine use disorder Benign essential HTN Knee pain Sleep apnea Gout Surgical History History of back surgery Social History household members: family and children Smoking Status: Former smoker Assessment & Plan Assessment & Plan narrative: 1. Acute gout flare of left knee, present on admission and slowly improving. - continue colchicine b.i.d. - status post steroid injection by Orthopedics - uric acid normal, okay to continue home allopurinol 300 mg BID without change - no NSAIDs with recent gastric bypass - progressive ambulation and weight-bearing as tolerated today -2. Hypertension. Present on admission and stable. - continue home losartan 100 mg daily - monitor blood pressure 3. Obesity s/p recent gastric bypass surgery, present on admission and stable. The patient is at much higher risk for medical and surgical complications because of their obesity. This increases the difficulty and complexity of medical and surgical interventions and increases the chances of poor outcomes such as morbidity and mortality. PLAN: -Continue colchicine and monitor progress with intra-articular injection of steroids. -Avoid nonsteroidals and prednisone due to recent gastric bypass. SAMRA: He was not able to weight bear. He was at home with all of his bedrooms on the 2nd floor. He was not medically stable for discharge. Anticipate home on 10/02. DVT prophylaxis -continue lovenox. PROFEE Charge codes Subsequent inpatient/observation care: 27331
[2024-10-02 03:00] VITALS: BP 141/70; PULSE 63; RESP 18; TEMP 36.7; O2SAT 94
[2024-10-02 08:26] VITALS: BP 133/70; PULSE 61; RESP 15; TEMP 36; O2SAT 95
--- NOTE | 2024-10-02 08:30 | P.DS_ITS ---
History of Present Illness History of Present Illness Date Patient Seen: 10/02/24 Time Patient Seen: 08:00 Date of Onset of Symptoms: 10/27/24 Chief complaint: Lt knee pain Narrative: Narrative: 58-year-old male with past medical history of obstructive sleep apnea, gout, hypertension and recent gastric bypass surgery done at [facility] presents with left knee pain. Of note, the patient is post-op day four from his gastric bypass. Over the last few days, the patients states that he has increasing left knee pain with some swelling. The patient denies any injury or any previous sugery to his left knee. The patient is concerned of a gout flare up. Otherwise the patient denies any fever, chills, nausea, vomiting or diarrhea. In our ER, the patient with hemodynamically stable. WBC was 12,000 with elevated CRP. X-ray of the left knee shows no bony injury but did show some effusion. Ultrasound of left lower extremity show no DVT. An attempt for left knee arthrocentesis was unsuccessful by our ER physician. Dr Escobar from orthopedic was consulted but recommended no systemic steroid due to recent gastric bypass. He advised that we admit the patient for pain control and oral colchicine. He will consult on the patient tomorrow and consider intra articular joint injection with steroids versus aspiration reattempt if symptoms not improving.? Discharge Providers Provider Date of admission: 09/27/24 11:25 Discharge Date: 10/02/24 Primary care physician: Mariluz Gallagher DO Consults: 09/30/24 12:55 Consult to Occupational Therapy Evaluate & Treat Comment: Physician Instructions: Evaluate and treat Consult to Physical Therapy Evaluate & Treat Comment: Physician Instructions: Evaluate and Treat Discharge provider: Ra Cook MD Summary Hospital Course Discharge Diagnosis: 1. Acute gout flare of left knee 2. History of recurrent gout 3. Hypertension 4. Obesity, status post recent gastric bypass Hospital Course: The patient was admitted and treated with colchicine and opioid pain medication as needed. Systemic steroids were avoided due to recent gastric bypass surgery. Orthopedics was consulted and performed a left knee corticosteroid injection. Symptoms gradually improved over subsequent days and the patient was able to ambulate without assistance. He was continued on DVT prophylaxis with subcutaneous enoxaparin. He is feeling well at time discharge. No other issues arose. Status at Discharge Cognitive/behavioral status at discharge: oriented Functional status at discharge: independent ambulation Overall status at discharge: patient is progressing back to baseline Time Spent with Patient Time spent: Less than 30 minutes Exam Vital Signs (past 8 hours): - 10/02/24 03:00 10/02/24 08:26 Temperature 98.0 F 96.8 F L Pulse Rate 63 61 Respiratory Rate 18 15 Blood Pressure 141/70 H 133/70 Pulse Oximetry 94 95 Oxygen Flow Rate 0 0 Oxygen Delivery Method Room Air Oxygen Flow Rate 0 Narrative Exam Narrative: NAD, alert and oriented. Fluent speech. Lungs are clear, normal rate and effort. Heart is regular, no murmur gallop or rub. Abdomen is soft, non distended. Extremities: Mild left knee swelling, minimal tenderness, mild anterior erythema. No skin breaks. Objective Imaging +: Radiologist's impression: 1. Left knee x-ray 09/25/2024: No acute bony abnormality. Moderate knee joint effusion. 2. Left lower extremity vascular ultrasound 09/25/2024: No findings of lower extremity deep venous thrombosis. No popliteal cyst visualized. Labs 09/29/24 05:10 09/29/24 05:10 [facility] Medical History Nicotine use disorder Benign essential HTN Knee pain Sleep apnea Gout Surgical History History of back surgery Social History household members: family and children Smoking Status: Former smoker Discharge Plan Discharge Plan Patient Disposition: Home Provider Discharge Comment: Followup with Dr. Gallagher 1 week Discharge orders & Medications Prescriptions: Continued losartan 100 mg tablet 100 mg PO DAILY Qty: 90 3RF allopurinol 300 mg tablet 300 mg PO BID Qty: 180 3RF polyethylene glycol 3350 [Miralax] 17 gram Powder In Packet 17 g PO DAILY acetaminophen 500 mg tablet 500 mg PO Q4H PRN (Reason: pain) ondansetron 8 mg tablet,disintegrating 8 mg PO Q8H PRN (Reason: nausea/vomiting) methocarbamol 750 mg tablet 750 mg PO 3XD ursodiol 300 mg capsule 300 mg PO BID omeprazole 20 mg capsule,delayed release(DR/EC) 20 mg PO DAILY enoxaparin 40 mg/0.4 mL syringe 40 mg DAILY colchicine 0.6 mg tablet 0.6 mg PO DAILY 90 Days Qty: 30 3RF Rx Instructions: gout prophylaxis oxycodone 5 mg tablet 5 mg PO Q6H PRN (Reason: pain) Qty: 10 0RF Follow up/Referrals: Mariluz Gallagher DO [Primary Care Provider] - Visit Report/Discharge Packet Stand Alone Forms: Patient Portal/API, Stroke Signs & Symptoms Discharge Data Primary Care Provider: Mariluz Gallagher Quality MIPS - Admit I confirm the patient?s Advance Care Plan is present, Code status is documented, Surrogate decision maker is in patient?s record [If Yes, STOP here]: Yes MIPS - Meds 'Current medications' to include all prescriptions, [id number] products, herbals, cannabis/cannabidiol products, and vitamin/mineral/dietary (nutritional) supplements. I have utilized all available resources to obtain, update, or review the patient?s current medications. [If Yes, STOP here]: Yes MIPS - DC The patient has a history of heart transplant or Left Ventricular Assist Device (LVAD). If yes, STOP here.: No The patient has current or prior documentation of left ventricular ejection fraction (LVEF) less than or equal to 40%, or moderate or severely depressed left ventricular systolic function.: No A. The patient was prescribed or already taking an Angiotensin-Converting Enzyme (WALESKA) Inhibitor, or Angiotensin Receptor Tammie (ARB).: Yes B. The patient was prescribed or already taking a beta-tammie. [If Yes to Both A & B, STOP here]: No Patient not prescribed/taking WALESKA or ARB, no reason given.: No Patient not prescribed/taking beta-tammie, no reason given.: No PROFEE Charge Codes Discharge inpatient/observation: [id number]
--- NOTE | 2024-10-02 09:06 | PT-IP ANOTE ---
Pt reports no PT needs, he is ready to d/c.
--- NOTE | 2024-10-02 09:31 | CM.DPNOTE ---
DCP Note STEEPING PRESS OPERATOR reviewed EMR. Per chart, home with family today. per Yris RN/chart review, Rocio completed consult note 10/01 for injection done on 09/29(?). STEEPING PRESS OPERATOR met with pt in room. Denies any CM needs at this time. P: home today with family support, no identified barriers to safe dc home at this time. CM team will continue to follow as needed MAHESH King
[2024-10-02 09:54] VITALS: BP 133/70; PULSE 61
[2024-10-02] MEDS: OXYCODONE IR 5 MG TABLET PO (09:54)
[2024-10-02] MEDS: LOSARTAN 50 MG TABLET 100 MG PO (09:54)
[2024-10-02] MEDS: ursodioL 300 MG CAPSULE PO (09:54)
[2024-10-02] MEDS: PANTOPRAZOLE DR 20 MG TABLET PO (09:55)
[2024-10-02] MEDS: methocarbamoL 500 MG TABLET 750 MG PO (09:55)
[2024-10-02] MEDS: ACETAMINOPHEN 325 MG TABLET 650 MG PO (09:55)
[2024-10-02] MEDS: allopurinoL 100 MG TABLET 300 MG PO (09:55)
[2024-10-02] MEDS: COLCHICINE 0.6 MG TABLET PO (09:55)
[2024-10-02] MEDS: ENOXAPARIN 40 MG/0.4 ML SYRINGE SUBCUT (09:59)
--- NOTE | 2024-10-02 12:15 | PC.NURSE ---
Pt discharged home at 1200, escorted off floor in wheelchair accompanied by spouse and hospital staff. IV removed, discharge teaching completed including new medications, wound care, and follow up appointments. Patient left the floor with all belongings.
--- NOTE | 2024-10-07 13:58 | PC.NURSE ---
Late entry: Oxycodone IR 5 mg x's 2 tab given to patient on 09/27/24 at 0355.
== END 2024-10-02 12:00 | disposition home or self-care (01) | DRG 554 ==
LOC: ED 20:06 → AC 20:07 → ICU 20:22 → AC 10-01 18:35
PROVIDERS: Emergency Medicine; Internal Medicine; Admitting Provider Internal Medicine; Emergency Provider Emergency Medicine; PCP Family Medicine; Referring Provider Emergency Medicine; Visit Provider Internal Medicine
DX: M10.9 Gout, unspecified (principal); Z68.44 Body mass index [BMI] 60.0-69.9, adult; E66.9 Obesity, unspecified; I10 Essential (primary) hypertension; Z98.84 Bariatric surgery status; Z87.891 Personal history of nicotine dependence
CPT/HCPCS: 20610; 36415; 73560; 80053; 83735; 84550; 85025; 85651; 86140; 87797; 93005; 93971; 96372; 96374; 96375; 96376; 97116; 97161; 97166; 97530; 99284; 99285; G0378; J1171; J1650; J1885; J2270; J3410